=== PATIENT | male | born 1940 | race Hispanic/Latino ===

== ENCOUNTER → 2018-03-28 | Outpatient (CLI) | payer OTHER ==
[~2018-03-28] MED LIST: LIDOCAINE/PRILOCAINE CREAM 5GM TUBE TP ONE
[2018-03-28 11:45] VITALS: BP 156/75
== END | disposition home or self-care (01) ==
LOC: WHH 08:50
PROVIDERS: ATTEND Surgery
DX: I83.018 Varicose veins of right lower extremity with ulcer other part of lower leg (principal); E11.622 Type 2 diabetes mellitus with other skin ulcer; L97.811 Non-pressure chronic ulcer of other part of right lower leg limited to breakdown of skin; E11.51 Type 2 diabetes mellitus with diabetic peripheral angiopathy without gangrene; I10 Essential (primary) hypertension; J44.9 Chronic obstructive pulmonary disease, unspecified; E11.36 Type 2 diabetes mellitus with diabetic cataract; Z87.891 Personal history of nicotine dependence; Z95.1 Presence of aortocoronary bypass graft
CPT/HCPCS: 82948; A4450; G0463; J3490

== ENCOUNTER → 2018-04-04 | Outpatient (CLI) | payer OTHER ==
[2018-04-04 11:16] VITALS: BP 178/79
== END | disposition home or self-care (01) ==
LOC: WHH 09:00
PROVIDERS: ATTEND Surgery
DX: I83.018 Varicose veins of right lower extremity with ulcer other part of lower leg (principal); E11.622 Type 2 diabetes mellitus with other skin ulcer; L97.811 Non-pressure chronic ulcer of other part of right lower leg limited to breakdown of skin; J44.9 Chronic obstructive pulmonary disease, unspecified; I10 Essential (primary) hypertension; E11.36 Type 2 diabetes mellitus with diabetic cataract; E11.51 Type 2 diabetes mellitus with diabetic peripheral angiopathy without gangrene; Z95.1 Presence of aortocoronary bypass graft; Z87.891 Personal history of nicotine dependence
CPT/HCPCS: 11042; 82948; J3490

== ENCOUNTER → 2018-04-09 | Outpatient (CLI) | payer OTHER | END | disposition home or self-care (01) | LOC: SHCH 14:04 | PROVIDERS: ATTEND Internal Medicine Cardiovascular Disease | DX: I87.2 Venous insufficiency (chronic) (peripheral) (principal); I73.9 Peripheral vascular disease, unspecified | CPT/HCPCS: 93925; 93970 ==

== ENCOUNTER → 2018-04-10 | Outpatient (CLI) | payer OTHER | END | disposition home or self-care (01) | LOC: WHH 14:30 | PROVIDERS: ATTEND Surgery | DX: I83.018 Varicose veins of right lower extremity with ulcer other part of lower leg (principal); E11.622 Type 2 diabetes mellitus with other skin ulcer; L97.811 Non-pressure chronic ulcer of other part of right lower leg limited to breakdown of skin; J44.9 Chronic obstructive pulmonary disease, unspecified; I10 Essential (primary) hypertension; E11.36 Type 2 diabetes mellitus with diabetic cataract; E11.51 Type 2 diabetes mellitus with diabetic peripheral angiopathy without gangrene; Z95.1 Presence of aortocoronary bypass graft; Z87.891 Personal history of nicotine dependence | CPT/HCPCS: 82948; 93922 ==

== ENCOUNTER → 2018-04-11 | Outpatient (CLI) | payer OTHER ==
[2018-04-11 11:08] VITALS: BP 176/80
== END | disposition home or self-care (01) ==
LOC: WHH 09:10
PROVIDERS: ATTEND Surgery
DX: I83.018 Varicose veins of right lower extremity with ulcer other part of lower leg (principal); E11.622 Type 2 diabetes mellitus with other skin ulcer; L97.811 Non-pressure chronic ulcer of other part of right lower leg limited to breakdown of skin; J44.9 Chronic obstructive pulmonary disease, unspecified; I10 Essential (primary) hypertension; E11.36 Type 2 diabetes mellitus with diabetic cataract; E11.51 Type 2 diabetes mellitus with diabetic peripheral angiopathy without gangrene; Z95.1 Presence of aortocoronary bypass graft; Z87.891 Personal history of nicotine dependence
CPT/HCPCS: A6021; G0463

== ENCOUNTER → 2018-04-15 | Outpatient (CLI) | payer OTHER | END | disposition home or self-care (01) | LOC: EDUNIT# 08:30 → SHCH 08:49 | PROVIDERS: ATTEND Internal Medicine Cardiovascular Disease | DX: I25.10 Atherosclerotic heart disease of native coronary artery without angina pectoris (principal); R07.9 Chest pain, unspecified; Z95.1 Presence of aortocoronary bypass graft | CPT/HCPCS: 93306 ==

== ENCOUNTER → 2018-04-25 | Outpatient (CLI) | payer OTHER ==
[2018-04-25 11:48] VITALS: BP 182/89
== END | disposition home or self-care (01) ==
LOC: WHH 09:00
PROVIDERS: ATTEND Surgery
DX: I83.018 Varicose veins of right lower extremity with ulcer other part of lower leg (principal); E11.622 Type 2 diabetes mellitus with other skin ulcer; L97.811 Non-pressure chronic ulcer of other part of right lower leg limited to breakdown of skin; I25.10 Atherosclerotic heart disease of native coronary artery without angina pectoris; J44.9 Chronic obstructive pulmonary disease, unspecified; I10 Essential (primary) hypertension; E11.36 Type 2 diabetes mellitus with diabetic cataract; E11.51 Type 2 diabetes mellitus with diabetic peripheral angiopathy without gangrene; I87.2 Venous insufficiency (chronic) (peripheral); Z95.1 Presence of aortocoronary bypass graft; Z87.891 Personal history of nicotine dependence
CPT/HCPCS: 82948; A6021; G0463; J3490

== ENCOUNTER → 2018-07-04 | Outpatient (CLI) | payer OTHER ==
[~2018-07-04] MED LIST changes: +ASPI-1197 PO; +ATOR10TA69 PO; +CLOP75TA32 PO; +EMPA10TA PO; +GLIP10TA9 PO; -LIDOCAINE/PRILOCAINE CREAM 5GM TUBE TP ONE; +losartan PO; +metformin PO; +metoprol PO
[2018-07-04 11:10] VITALS: BP 162/85
== END | disposition home or self-care (01) ==
LOC: WHH 09:00
PROVIDERS: ATTEND Surgery
DX: I83.018 Varicose veins of right lower extremity with ulcer other part of lower leg (principal); E11.622 Type 2 diabetes mellitus with other skin ulcer; L97.811 Non-pressure chronic ulcer of other part of right lower leg limited to breakdown of skin; I25.10 Atherosclerotic heart disease of native coronary artery without angina pectoris; J44.9 Chronic obstructive pulmonary disease, unspecified; E78.5 Hyperlipidemia, unspecified; I11.9 Hypertensive heart disease without heart failure; E11.51 Type 2 diabetes mellitus with diabetic peripheral angiopathy without gangrene; E11.36 Type 2 diabetes mellitus with diabetic cataract; Z87.891 Personal history of nicotine dependence; Z95.1 Presence of aortocoronary bypass graft
CPT/HCPCS: A6196; G0463

== ENCOUNTER → 2018-07-11 | Outpatient (CLI) | payer OTHER ==
[2018-07-11 13:56] VITALS: BP 174/85
== END | disposition home or self-care (01) ==
LOC: WHH 09:20
PROVIDERS: ATTEND Surgery
DX: I83.018 Varicose veins of right lower extremity with ulcer other part of lower leg (principal); E11.622 Type 2 diabetes mellitus with other skin ulcer; L97.811 Non-pressure chronic ulcer of other part of right lower leg limited to breakdown of skin; I25.10 Atherosclerotic heart disease of native coronary artery without angina pectoris; J44.9 Chronic obstructive pulmonary disease, unspecified; E78.5 Hyperlipidemia, unspecified; I11.9 Hypertensive heart disease without heart failure; E11.51 Type 2 diabetes mellitus with diabetic peripheral angiopathy without gangrene; E11.36 Type 2 diabetes mellitus with diabetic cataract; Z87.891 Personal history of nicotine dependence; Z95.1 Presence of aortocoronary bypass graft
CPT/HCPCS: A6022; G0463

== ENCOUNTER → 2018-07-18 | Outpatient (CLI) | payer OTHER ==
[~2018-07-18] MED LIST changes: +LIDOCAINE/PRILOCAINE CREAM 5GM TUBE TP ONE
[2018-07-18 13:25] VITALS: BP 180/82
== END | disposition home or self-care (01) ==
LOC: WHH 09:20
PROVIDERS: ATTEND Surgery
DX: I70.238 Atherosclerosis of native arteries of right leg with ulceration of other part of lower leg (principal); E11.622 Type 2 diabetes mellitus with other skin ulcer; L97.811 Non-pressure chronic ulcer of other part of right lower leg limited to breakdown of skin; I25.10 Atherosclerotic heart disease of native coronary artery without angina pectoris; J44.9 Chronic obstructive pulmonary disease, unspecified; E78.5 Hyperlipidemia, unspecified; I11.9 Hypertensive heart disease without heart failure; E11.51 Type 2 diabetes mellitus with diabetic peripheral angiopathy without gangrene; E11.36 Type 2 diabetes mellitus with diabetic cataract; Z87.891 Personal history of nicotine dependence; Z95.1 Presence of aortocoronary bypass graft
CPT/HCPCS: A6022; G0463; J3490

== ENCOUNTER → 2018-07-25 | Outpatient (CLI) | payer OTHER ==
[~2018-07-25] MED LIST changes: -LIDOCAINE/PRILOCAINE CREAM 5GM TUBE TP ONE
[2018-07-25 09:53] VITALS: BP 172/75
== END | disposition home or self-care (01) ==
LOC: WHH 09:15
PROVIDERS: ATTEND Surgery
DX: I83.018 Varicose veins of right lower extremity with ulcer other part of lower leg (principal); L97.811 Non-pressure chronic ulcer of other part of right lower leg limited to breakdown of skin; I73.9 Peripheral vascular disease, unspecified; I25.10 Atherosclerotic heart disease of native coronary artery without angina pectoris; J44.9 Chronic obstructive pulmonary disease, unspecified; E78.5 Hyperlipidemia, unspecified; I11.9 Hypertensive heart disease without heart failure; E11.51 Type 2 diabetes mellitus with diabetic peripheral angiopathy without gangrene; E11.36 Type 2 diabetes mellitus with diabetic cataract; Z87.891 Personal history of nicotine dependence; Z95.1 Presence of aortocoronary bypass graft
CPT/HCPCS: A6021; G0463

== ENCOUNTER 2018-08-01 09:30 | Outpatient (CLI) | payer OTHER ==
[2018-08-01 13:18] VITALS: BP 186/99
== END 2018-08-01 14:54 | disposition home or self-care (01) ==
LOC: WHH 09:30
PROVIDERS: ATTEND Surgery
DX: I83.018 Varicose veins of right lower extremity with ulcer other part of lower leg (principal); E11.622 Type 2 diabetes mellitus with other skin ulcer; L97.811 Non-pressure chronic ulcer of other part of right lower leg limited to breakdown of skin; I25.10 Atherosclerotic heart disease of native coronary artery without angina pectoris; J44.9 Chronic obstructive pulmonary disease, unspecified; E78.5 Hyperlipidemia, unspecified; I11.9 Hypertensive heart disease without heart failure; E11.51 Type 2 diabetes mellitus with diabetic peripheral angiopathy without gangrene; E11.36 Type 2 diabetes mellitus with diabetic cataract; Z87.891 Personal history of nicotine dependence; Z95.1 Presence of aortocoronary bypass graft
CPT/HCPCS: G0463

== ENCOUNTER → 2019-10-28 | Outpatient (CLI) | payer OTHER | END | disposition home or self-care (01) | LOC: RAH 09:47 | PROVIDERS: ATTEND Family Medicine | DX: I34.0 Nonrheumatic mitral (valve) insufficiency (principal); I31.3 Pericardial effusion (noninflammatory) | CPT/HCPCS: 93306 ==

== ENCOUNTER → 2021-06-22 | Outpatient (CLI) | payer OTHER | END | disposition home or self-care (01) | LOC: SHCH 11:05 | PROVIDERS: ATTEND Internal Medicine Cardiovascular Disease | DX: I70.292 Other atherosclerosis of native arteries of extremities, left leg (principal) | CPT/HCPCS: 93925 ==

== ENCOUNTER 2022-11-28 10:38 | Observation (INO) | payer MEDICARE ==
[~2022-11-28] VITALS: Ht 165.1 cm; Wt 79.7 kg
[~2022-11-28 10:38] MED LIST changes: -ATOR10TA69 PO; +ATOR40TA69 PO; -EMPA10TA PO; +EMPA25TA PO; +FLUT1BLS3 IH; +FURO40TA7 PO; +LOSA25TA41 PO; +METF-446 PO; +METO-391 PO; +PANT40TA54 PO; +SPIR50TA PO; -losartan PO; -metformin PO; -metoprol PO
[2022-11-28 11:13] LABS: BASOPHILS % (AUTO) 0.8 % (0.0-5.0); EOSINOPHILS % (AUTO) 0.8 % (0.0-8.0); MEAN CORPUSCULAR HEMOGLOBIN 28.1 pg (27.0-33.0); MEAN CORPUSCULAR HGB CONC 30.4 g/dL (32.0-36.0); MEAN CORPUSCULAR VOLUME 92.2 fL (79-99); NEUTROPHILS % (AUTO) 73.9 % (40.0-77.0); PLATELET COUNT (AUTO) 225 K/uL (130-400); RED BLOOD CELL COUNT(AUTO) 4.99 MIL/uL (4.50-6.20); RED CELL DISTRIBUTION WIDTH 17.3 % (11.0-15.5); WHITE BLOOD COUNT (AUTO) 7.5 K/uL (4.8-10.8)
[2022-11-28 11:15] LABS: APPEARANCE,URINE CLEAR (CLEAR); BILIRUBIN,URINE NEGATIVE (NEGATIVE); COLOR,URINE LIGHT-YELLOW (YELLOW); GLUCOSE, URINE (UA) NEGATIVE (NEGATIVE); KETONES,URINE NEGATIVE (NEGATIVE); LEUKOCYTE ESTERASE ,URINE NEGATIVE Leu/uL (NEGATIVE); NITRATE,URINE NEGATIVE (NEGATIVE); OCCULT BLOOD,URINE NEGATIVE (NEGATIVE); PROTEIN,URINE NEGATIVE (NEGATIVE); UROBILINOGEN,URINE 0.2 mg/dL (0.2-1.0)
[2022-11-28 11:25] LABS: CREATININE 1.3 mg/dL (0.5-1.5); POTASSIUM 4.2 mmol/L (3.5-5.1)
[2022-11-28 11:30] LABS: ALBUMIN 3.7 g/dL (3.5-5.0); TOTAL PROTEIN, SERUM 7.9 g/dL (6.0-8.3)
[2022-11-28] MEDS ORDERED: SOLU-MEDROL 125MG VIAL IVP ONE (12:00)
[2022-11-28] MEDS ORDERED: IPRATROPIUM/ALBUTEROL SULFATE 3 ML SOLUTION IH ONE (12:00)
[2022-11-28] MEDS ORDERED: ALBUTEROL 0.083% 2.5 MG/3 ML INH IH STA (12:29)
[2022-11-28] MEDS ORDERED: POTASSIUM CHLORIDE 20MEQ/100ML 100 ML IV PRN (15:30)
[2022-11-28] MEDS ORDERED: KCL 20 MEQ ERTAB PO PRN (15:30)
[2022-11-28] MEDS ORDERED: LIDOCAINE HCL-MPF 1% 2ML VIAL IJ PRN (15:30)
[2022-11-28] MEDS ORDERED: ENOXAPARIN SODIUM 80 MG/0.8 ML SQ SCH (15:30)
[2022-11-28] MEDS ORDERED: POTASSIUM CHLORIDE 10% ELIXIR 20 MEQ/15 ML UDCUP PO PRN (15:30)
[2022-11-28] MEDS: KCL 20 MEQ ERTAB PO SCH ×2 (16:24→22:47)
[2022-11-28] MEDS: FUROSEMIDE 40MG VIAL IV SCH (16:25)
[2022-11-29] MEDS: FUROSEMIDE 40MG VIAL IV SCH ×2 (04:56→15:41)
[2022-11-29] MEDS ORDERED: ISOS30TA92 PO (06:12)
[2022-11-29] MEDS ORDERED: TAMS-1 PO (06:12)
[2022-11-29 07:52] LABS: HEMATOCRIT 44.8 % (42-54); MEAN CORPUSCULAR HEMOGLOBIN 28.3 pg (27.0-33.0); MEAN CORPUSCULAR HGB CONC 31.3 g/dL (32.0-36.0); MEAN CORPUSCULAR VOLUME 90.7 fL (79-99); RED BLOOD CELL COUNT(AUTO) 4.94 MIL/uL (4.50-6.20); RED CELL DISTRIBUTION WIDTH 17.2 % (11.0-15.5); WHITE BLOOD COUNT (AUTO) 7.3 K/uL (4.8-10.8)
[2022-11-29 08:00] VITALS: BP 160/79
[2022-11-29 08:08] LABS: ALBUMIN 3.4 g/dL (3.5-5.0); CREATININE 1.3 mg/dL (0.5-1.5); POTASSIUM 4.4 mmol/L (3.5-5.1); TOTAL PROTEIN, SERUM 7.9 g/dL (6.0-8.3)
[2022-11-29] MEDS: KCL 20 MEQ ERTAB PO SCH ×2 (09:00→20:34)
[2022-11-29] MEDS ORDERED: ENOXAPARIN SODIUM 80 MG/0.8 ML SQ SCH (09:00)
[2022-11-29] MEDS: ENOXAPARIN SODIUM 40 MG/0.4 ML SYRINGE SQ SCH (09:00)
[2022-11-29] MEDS: LOSARTAN 25 MG TABLET PO SCH (10:52)
[2022-11-29] MEDS: ISOSORBIDE MONO 30MG SR TAB PO SCH (10:52)
[2022-11-29] MEDS: CLOPIDOGREL 75MG TAB PO SCH (10:54)
[2022-11-29] MEDS: ASPIRIN 81MG CHEW TAB PO SCH (10:55)
[2022-11-29] MEDS: SPIRONOLACTONE 25 MG TAB PO SCH ×2 (10:55→20:34)
[2022-11-29] MEDS: INSULIN HUMULIN R 100 UNIT/ML 3ML SQ SCH ×4 (10:59→20:38)
[2022-11-29 12:00] VITALS: BP 119/70
[2022-11-29 16:00] VITALS: BP 119/71
[2022-11-29 20:00] VITALS: BP 115/64
[2022-11-29] MEDS ORDERED: METOPROLOL SUCCINATE 50 MG TAB.SR.24H PO SCH (21:00)
[2022-11-30] VITALS: BP 101/54
[2022-11-30] MEDS: FUROSEMIDE 40MG VIAL IV SCH (03:39)
[2022-11-30 04:00] VITALS: BP 104/54
[2022-11-30] MEDS: INSULIN HUMULIN R 100 UNIT/ML 3ML SQ SCH (07:30)
[2022-11-30 08:00] VITALS: BP 111/67
[2022-11-30] MEDS: ASPIRIN 81MG CHEW TAB PO SCH (08:30)
[2022-11-30] MEDS: LOSARTAN 25 MG TABLET PO SCH (08:30)
[2022-11-30] MEDS: SPIRONOLACTONE 25 MG TAB PO SCH (08:31)
[2022-11-30] MEDS: KCL 20 MEQ ERTAB PO SCH (08:31)
[2022-11-30] MEDS: CLOPIDOGREL 75MG TAB PO SCH (08:31)
[2022-11-30] MEDS: ISOSORBIDE MONO 30MG SR TAB PO SCH (08:31)
[2022-11-30] MEDS: ENOXAPARIN SODIUM 40 MG/0.4 ML SYRINGE SQ SCH (08:37)
== END 2022-11-30 11:30 | disposition home or self-care (01) ==
LOC: EDH 10:38 → EDHIP 13:45 → INTOOBSV 13:45 → 3DH 11-29 05:25
PROVIDERS: ADMIT Internal Medicine; ATTEND Internal Medicine
DX: I11.0 Hypertensive heart disease with heart failure (principal); Z20.822 Contact with and (suspected) exposure to COVID-19; I50.23 Acute on chronic systolic (congestive) heart failure; I25.10 Atherosclerotic heart disease of native coronary artery without angina pectoris; E78.5 Hyperlipidemia, unspecified; E11.9 Type 2 diabetes mellitus without complications; E78.00 Pure hypercholesterolemia, unspecified; J45.909 Unspecified asthma, uncomplicated; I73.9 Peripheral vascular disease, unspecified; Z95.1 Presence of aortocoronary bypass graft; Z95.5 Presence of coronary angioplasty implant and graft; Z91.119 Patient's noncompliance with dietary regimen due to unspecified reason; Z95.810 Presence of automatic (implantable) cardiac defibrillator; Z79.899 Other long term (current) drug therapy
CPT/HCPCS: 94640 ×2; 96374; 96372 ×3; 96375; 82550 ×3; 83874 ×3; 84484 ×4; 80053 ×2; 83880; 85025; 81003; 36415 ×2; 87635; 71045 ×2; 99291; 93005 ×2; 96376 ×2; 85027; 82948 ×4; G0378 ×45; C9803; J2930; J1650 ×3; J1940 ×4

== ENCOUNTER 2022-12-11 10:25 | Inpatient (IN) | payer MEDICARE ==
[~2022-12-11] VITALS: Ht 167.6 cm; Wt 74.8 kg
[~2022-12-11 10:25] MED LIST changes: +ISOS30TA92 PO; +TAMS-1 PO
[2022-12-11 11:07] LABS: CREATININE 1.1 mg/dL (0.5-1.5); POTASSIUM 4.4 mmol/L (3.5-5.1)
[2022-12-11 11:12] LABS: ALBUMIN 3.4 g/dL (3.5-5.0); TOTAL PROTEIN, SERUM 7.2 g/dL (6.0-8.3)
[2022-12-11 11:22] LABS: APPEARANCE,URINE CLEAR (CLEAR); BILIRUBIN,URINE NEGATIVE (NEGATIVE); COLOR,URINE YELLOW (YELLOW); GLUCOSE, URINE (UA) 200 mg/dL (NEGATIVE); KETONES,URINE 5 mg/dL (NEGATIVE); LEUKOCYTE ESTERASE ,URINE NEGATIVE Leu/uL (NEGATIVE); NITRATE,URINE NEGATIVE (NEGATIVE); OCCULT BLOOD,URINE NEGATIVE (NEGATIVE); PH,URINE 5.5 (5.0-8.0); PROTEIN,URINE 50 mg/dL (NEGATIVE)
[2022-12-11 11:27] LABS: BASOPHILS % (AUTO) 0.6 % (0.0-5.0); EOSINOPHILS % (AUTO) 1.1 % (0.0-8.0); HEMATOCRIT 44.6 % (42-54); LYMPHOCYTES % (AUTO) 11.5 % (21.0-51.0); MEAN CORPUSCULAR HEMOGLOBIN 28.5 pg (27.0-33.0); MEAN CORPUSCULAR HGB CONC 30.3 g/dL (32.0-36.0); MEAN CORPUSCULAR VOLUME 94.3 fL (79-99); MONOCYTES % (AUTO) 7.4 % (3.0-13.0); NEUTROPHILS % (AUTO) 77.7 % (40.0-77.0); PLATELET COUNT (AUTO) 195 K/uL (130-400); RED BLOOD CELL COUNT(AUTO) 4.73 MIL/uL (4.50-6.20); RED CELL DISTRIBUTION WIDTH 17.8 % (11.0-15.5); WHITE BLOOD COUNT (AUTO) 7.1 K/uL (4.8-10.8)
[2022-12-11 11:32] LABS: BACTERIA,URINE RARE /HPF (None Seen); MUCUS,URINE RARE LPF (None Seen); SQUAMOUS EPITHELIAL CELL,UR RARE /HPF (0-2)
[2022-12-11] MEDS ORDERED: FUROSEMIDE 40MG VIAL IV ONE (15:00)
[2022-12-11] MEDS: FUROSEMIDE 40MG VIAL IV SCH (16:00)
[2022-12-11] MEDS: INSULIN HUMULIN R 100 UNIT/ML 3ML SQ SCH ×2 (16:24→20:21)
[2022-12-11] MEDS: SPIRONOLACTONE 25 MG TAB PO SCH (20:20)
[2022-12-11] MEDS: KCL 20 MEQ ERTAB PO SCH (20:20)
[2022-12-11] MEDS ORDERED: MAGNESIUM OXIDE 400 MG TABLET PO SCH (20:30)
[2022-12-12 01:00] VITALS: BP 128/65
[2022-12-12] MEDS: FUROSEMIDE 40MG VIAL IV SCH ×3 (01:36→16:30)
[2022-12-12 03:50] VITALS: BP 127/82
[2022-12-12] MEDS: INSULIN HUMULIN R 100 UNIT/ML 3ML SQ SCH ×4 (05:35→20:07)
[2022-12-12 08:00] VITALS: BP 137/71
[2022-12-12 09:01] LABS: CREATININE 1.2 mg/dL (0.5-1.5); POTASSIUM 4.2 mmol/L (3.5-5.1)
[2022-12-12] MEDS: SPIRONOLACTONE 25 MG TAB PO SCH ×2 (09:04→20:08)
[2022-12-12] MEDS: CLOPIDOGREL 75MG TAB PO SCH (09:04)
[2022-12-12] MEDS: ISOSORBIDE MONO 30MG SR TAB PO SCH (09:04)
[2022-12-12] MEDS: LOSARTAN 25 MG TABLET PO SCH (09:04)
[2022-12-12] MEDS: ASPIRIN 81MG CHEW TAB PO SCH (09:05)
[2022-12-12] MEDS: KCL 20 MEQ ERTAB PO SCH ×2 (09:05→20:08)
[2022-12-12 11:35] VITALS: BP 134/70
[2022-12-12 15:30] VITALS: BP 138/70
[2022-12-12 20:00] VITALS: BP 121/63
[2022-12-12] MEDS ORDERED: ATORVASTATIN 40 MG TABLET PO SCH (21:00)
[2022-12-12] MEDS ORDERED: METOPROLOL SUCCINATE 50 MG TAB.SR.24H PO SCH (21:00)
[2022-12-13] VITALS: BP 101/58
[2022-12-13] MEDS: FUROSEMIDE 40MG VIAL IV SCH ×2 (00:47→08:30)
[2022-12-13 04:00] VITALS: BP 127/60
[2022-12-13] MEDS: INSULIN HUMULIN R 100 UNIT/ML 3ML SQ SCH (06:56)
[2022-12-13 08:00] VITALS: BP 117/65
[2022-12-13] MEDS: ISOSORBIDE MONO 30MG SR TAB PO SCH (08:30)
[2022-12-13] MEDS: LOSARTAN 25 MG TABLET PO SCH (08:30)
[2022-12-13] MEDS: CLOPIDOGREL 75MG TAB PO SCH (08:30)
[2022-12-13] MEDS: SPIRONOLACTONE 25 MG TAB PO SCH (08:31)
[2022-12-13] MEDS: ASPIRIN 81MG CHEW TAB PO SCH (08:31)
[2022-12-13] MEDS: KCL 20 MEQ ERTAB PO SCH (08:33)
[2022-12-13] MEDS ORDERED: SACUBITRIL/VALSARTAN 1 EACH TABLET PO SCH (09:00)
[2022-12-13] MEDS ORDERED: FUROSEMIDE 40 MG TABLET PO SCH ×2 (09:00→17:00)
[2022-12-13 12:00] VITALS: BP 126/72
== END 2022-12-13 16:14 | disposition home or self-care (01) | DRG 291 ==
LOC: EDH 10:25 → EDHIP 14:15 → 4BH 12-12 00:43
PROVIDERS: ADMIT Internal Medicine; ATTEND Internal Medicine
DX: I11.0 Hypertensive heart disease with heart failure (principal); I50.43 Acute on chronic combined systolic (congestive) and diastolic (congestive) heart failure; I25.5 Ischemic cardiomyopathy; I25.10 Atherosclerotic heart disease of native coronary artery without angina pectoris; E11.51 Type 2 diabetes mellitus with diabetic peripheral angiopathy without gangrene; I70.209 Unspecified atherosclerosis of native arteries of extremities, unspecified extremity; I87.2 Venous insufficiency (chronic) (peripheral); E78.00 Pure hypercholesterolemia, unspecified; Z95.1 Presence of aortocoronary bypass graft; Z79.02 Long term (current) use of antithrombotics/antiplatelets; Z79.82 Long term (current) use of aspirin; Z95.5 Presence of coronary angioplasty implant and graft; Z95.810 Presence of automatic (implantable) cardiac defibrillator
CPT/HCPCS: 36415; 71045; 80048; 80053; 81001; 82550; 82948; 83874; 83880; 84484; 85025; 87635; 87804; 93005; C9803; G0378; J1815; J1940

== ENCOUNTER → 2023-07-16 | Outpatient (CLI) | payer OTHER ==
[~2023-07-16] MED LIST changes: -FURO40TA7 PO; -LOSA25TA41 PO
== END | disposition home or self-care (01) ==
LOC: SHCH 13:01
PROVIDERS: ATTEND Internal Medicine Cardiovascular Disease
DX: I87.2 Venous insufficiency (chronic) (peripheral) (principal); I70.202 Unspecified atherosclerosis of native arteries of extremities, left leg
CPT/HCPCS: 93925; 93970

== ENCOUNTER → 2023-07-23 | Outpatient (CLI) | payer OTHER ==
[~2023-07-23] MED LIST changes: +REGADENOSON 0.4 MG/5 ML PF SYG IVP ONE
== END | disposition home or self-care (01) ==
LOC: SHCH 08:20
PROVIDERS: ATTEND Internal Medicine Cardiovascular Disease
DX: I20.9 Angina pectoris, unspecified (principal); R94.39 Abnormal result of other cardiovascular function study; I51.7 Cardiomegaly; I25.9 Chronic ischemic heart disease, unspecified; Z95.0 Presence of cardiac pacemaker
CPT/HCPCS: 78452; 93017; J2785; A9500 ×2; 96374

== ENCOUNTER → 2024-10-08 | Outpatient (CLI) | payer OTHER ==
[~2024-10-08] MED LIST changes: +GLIP10TA16 PO; -GLIP10TA9 PO; -REGADENOSON 0.4 MG/5 ML PF SYG IVP ONE
== END | disposition home or self-care (01) ==
LOC: SHCH 12:19
PROVIDERS: ATTEND Internal Medicine Cardiovascular Disease
DX: R06.02 Shortness of breath (principal); R07.9 Chest pain, unspecified
CPT/HCPCS: 93306

== ENCOUNTER → 2025-02-11 | Outpatient (CLI) | payer OTHER ==
[~2025-02-11] MED LIST changes: -ASPI-1197 PO; -ATOR40TA69 PO; -CLOP75TA32 PO; -FLUT1BLS3 IH; -ISOS30TA92 PO; +LOSA25TA41 PO; -PANT40TA54 PO; +PIOG30TA70 PO; +RIVA20TA PO; -SPIR50TA PO; -TAMS-1 PO; +TAMS-55 PO; +TORS20TA4 PO
[2025-02-11 12:56] LABS: ALBUMIN 3.7 g/dL (3.5-5.0); CREATININE 1.3 mg/dL (0.5-1.3); POTASSIUM 3.7 mmol/L (3.5-5.1); TOTAL PROTEIN, SERUM 8.1 g/dL (6.0-8.3)
== END | disposition home or self-care (01) ==
LOC: LAB 09:49
PROVIDERS: ATTEND Physician Assistant
DX: I25.5 Ischemic cardiomyopathy (principal)
CPT/HCPCS: 36415; 80053; 83880

== ENCOUNTER 2025-04-12 15:29 | Inpatient (IN) | payer OTHER ==
[~2025-04-12] VITALS: Ht 165.1 cm; Wt 83.7 kg
--- NOTE | 2025-04-12 15:39 | ERN ---
General Chief Complaint: Dyspnea/Respdistress Stated Complaint: SOB WITH EXERTION Time Seen by MD: 15:32 Source: patient History of Present Illness Initial Comments PATIENT IS A AN 84-YEAR-OLD MALE COMING IN TO BE EVALUATED FOR SHORTNESS OF BREATH. PATIENT DOES HAS A HISTORY OF CHF AND STATES HE TAKES HIS MEDICATION 3 TIMES A DAY. HE ALSO STATES THAT THREE DAYS AGO HE STARTED NOTICING AN INCREASING WEIGHT. Allergies: Coded Allergies: No Known Drug Allergies (Unverified Allergy, Unknown, 05/17/18) Home Meds Active Scripts Torsemide (Torsemide) 20 Mg Tablet, 20 MG PO AD, #90 TAB take 2 tabs in AM take 1 tab PM Prov:ROSE CHINO 01/18/25 Reported Medications Pioglitazone HCl (Pioglitazone HCl) 30 Mg Tablet, 30 MG PO DAILY, TAB 01/16/25 Empagliflozin (Jardiance) 25 Mg Tablet, 25 MG PO DAILY, TAB 01/16/25 Rivaroxaban (Xarelto) 20 Mg Tablet, 2.5 MG PO DAILY, TAB 01/16/25 Tamsulosin HCl (Flomax) 0.4 Mg Cap.er.24h, 0.4 MG PO DAILY, CAPSULE.DR 01/16/25 Metoprolol Succinate (Metoprolol Succinate) 50 Mg Tab.er.24h, 50 MG PO DAILY, TAB 01/16/25 Glipizide (Glipizide) 10 Mg Tablet, 10 MG PO DAILY, TAB 01/16/25 Metformin HCl (Metformin HCl) 1,000 Mg Tablet, 1000 MG PO BID, TAB 01/16/25 Losartan Potassium (Losartan Potassium) 25 Mg Tablet, 25 MG PO DAILY, TAB 01/16/25 Past Medical History Past Medical History: CHF, Diabetes-Type II, High Cholesterol, Heart Disease, Hypertension Past Surgical History: CABG, Pacer/AICD Surgical History Other: CATARACTS, CARDIAC STENTS Social History Social History: Negative ROS Dictation CONSTITUTIONAL: NO CHILLS, NO FEVER, NO WEAKNESS, NO DIAPHORESIS, NO MALAISE. HEAD/FACE: NO SIGNS OF TRAUMA. EENT: NO EYE PAIN, NO BLURRED VISION, NO TEARING, NO DOUBLE VISION, NO EAR PAIN, NO EAR DISCHARGE, NO NOSE PAIN, NO NASAL CONGESTION, NO THROAT PAIN, NO THROAT SWELLING, NO MOUTH PAIN. RESPIRATORY: NO COUGH, NO ORTHOPNEA, SOB, NO STRIDOR, NO WHEEZING. CARDIOVASCULAR: NO CHEST PAIN, NO EDEMA, NO PALPITATIONS, NO SYNCOPE. GASTROINTESTINAL/ABDOMINAL: NO ABDOMINAL PAIN, NO CONSTIPATION, NO DIARRHEA, NO NAUSEA, NO VOMITING. GENITOURINARY: NO ABNORMAL DISCHARGE, NO DYSURIA, NO FREQUENT URINATION, NO HEMATURIA. NO COMPLAINTS OF PAIN IN THE GENITALS. MUSCULOSKELETAL: NO BACK PAIN, NO GOUT, NO JOINT PAIN, NO JOINT SWELLING, NO MUSCLE PAIN, NO MUSCLE STIFFNESS, NO NECK PAIN. INTEGUMENTARY: NO CHANGE IN COLOR, NO CHANGE IN HAIR/NAILS, NO DRYNESS, NO LESION, NO LUMPS, NO RASH. NEUROLOGICAL/PSYCH: NO ANXIETY, NOT DEPRESSED, NO EMOTIONAL PROBLEM, NO HEADACHE, NO NUMBNESS, NO PRE-EXISTING DEFICIT, NO HISTORY OF SEIZURES, NO TREMORS, NO WEAKNESS. HEMATOLOGIC/LYMPHATIC: NOT ANEMIC, NO HISTORY OF BLOOD CLOTS, NO APPARENT BLEEDING, NO BRUISING, GLANDS NOT SWOLLEN. ALL SYSTEMS NEGATIVE, EXCEPT NOTED. Physical Exam Physical Exam Dictation VITAL SIGNS: REVIEWED. GENERAL APPEARANCE: ALERT, ORIENTED X3, NO ACUTE DISTRESS, OBESE. HEAD AND FACE: NON-TRAUMATIC. EYES: PERRL, PINK CONJUNCTIVAS, EYELID NO TRAUMA, ANTERIOR CHAMBER CLEAR. EARS: PINNAS INTACT AND NO SIGNS OF TRAUMA OR ERYTHEMA. EAR CANALS CLEAR AND NO DISCHARGE. TMS NO ERYTHEMA. NOSE: NO DISCHARGE, NO BLEEDING. OROPHARYNX: MOUTH NORMAL, TEETH NO CARIES, TONGUE PINK. PHARYNX CLEAR, NO ERYTHEMA. TONSILS NO EXUDATES, NO ABSCESSES NOTED. MUCOUS MEMBRANE MOIST. NECK: SUPPLE, NON-TENDER, NO THYROMEGALY, NO MASSES, NO JVD, NO BRUITS. BREAST: DEFERRED. CHEST: NO TENDERNESS, NO CREPITUS, NO PARADOXICAL MOVEMENT, NO RETRACTIONS. LUNGS: CLEAR, WELL-VENTILATED, SYMMETRIC, NO RALES, NO WHEEZING, NO RHONCHI, NO STRIDOR, GOOD BREATH SOUNDS BILATERALLY. HEART: REGULAR RATE, REGULAR RHYTHM, NO MURMUR, NO GALLOPS. VASCULAR: NO PERIPHERAL EDEMA. ABDOMEN: SOFT, POSITIVE BOWEL SOUNDS, NONDISTENDED, NO GUARDING, NONTENDER, NO REBOUND, NO MASSES NO HEPATOMEGALY, NO SPLENOMEGALY, NO MARTINEZ'S SIGN, NO HERNIAS. RECTAL: DEFERRED. GENITAL: DEFERRED. NEUROLOGICAL: NORMAL SPEECH, GROSS MOTOR FUNCTION INTACT, GROSS SENSORY FUNCTION INTACT. MUSCULOSKELETAL: NECK NONTENDER, FULL RANGE OF MOTION, BACK NONTENDER, FULL RANGE OF MOTION. EXTREMITIES: NONTENDER, FULL RANGE OF MOTION. SKIN: COLOR PINK, DRY, NO TURGOR, NO RASH, NO LACERATIONS, NO ABRASIONS, NO CONTUSIONS. LYMPHATICS: DEFERRED. Results Laboratory and Microbiology Lab and Micro Result Laboratory Tests Test 04/12/25 16:01 White Blood Count 4.9 K/uL (4.8-10.8) Red Blood Count 4.66 MIL/uL (4.50-6.20) Hemoglobin 12.9 g/dL (14.0-18.0) L Hematocrit 42.9 % (42-54) Mean Corpuscular Volume 92.1 fL (79-99) Mean Corpuscular Hemoglobin 27.7 pg (27.0-33.0) Mean Corpuscular Hemoglobin Concent 30.1 g/dL (32.0-36.0) L Red Cell Distribution Width 18.8 % (11.0-15.5) H Platelet Count 170 K/uL (130-400) Mean Platelet Volume 10.8 fL (7.5-10.5) H Immature Granulocyte % (Auto) 0.2 % (0-1) Neutrophils (%) (Auto) 64.8 % (40.0-77.0) Lymphocytes (%) (Auto) 22.2 % (21.0-51.0) Monocytes (%) (Auto) 10.1 % (3.0-13.0) Eosinophils (%) (Auto) 2.1 % (0.0-8.0) Basophils (%) (Auto) 0.6 % (0.0-5.0) Neutrophils # (Auto) 3.2 K/uL (1.8-7.7) Lymphocytes # (Auto) 1.1 K/uL (1.0-4.8) Monocytes # (Auto) 0.5 K/uL (0.1-1.0) Eosinophils # (Auto) 0.10 K/uL (0.00-0.70) Basophils # (Auto) 0.03 K/uL (0.00-0.20) Absolute Immature Granulocyte (auto 0.01 K/uL (0-1) Nucleated Red Blood Cells 0.0 % (0.0-0.19) Red Blood Cell Morphology See comments Sodium Level 140 mmol/L (136-145) Potassium Level 4.4 mmol/L (3.5-5.1) Chloride Level 103 mmol/L (101-111) Carbon Dioxide Level 26 mmol/L (21-32) Blood Urea Nitrogen 53 mg/dL (7-18) H Creatinine 1.5 mg/dL (0.5-1.3) H Glomerular Filtration Rate Calc 46 mL/min (>90) Random Glucose 161 mg/dL (70-105) H Total Calcium 8.5 mg/dL (8.5-10.1) Magnesium Level 2.00 mg/dL (1.80-2.40) Total Creatine Kinase 88 U/L (21-232) # Troponin I High Sensitivity 19 ng/L (4-75) B-Type Natriuretic Peptide 3230 pg/mL (0-100) H Labs Reviewed?: Yes EKG/XRAY/US/CT/MRI EKG Comment 04/12/2025 TIME 3:42 P.M. VENTRICULAR RATE [address] WAVE ELEVATION OR DEPRESSION X-RAY Comment [address] [place] [address] [place] [address] IMAGING REPORT Signed PATIENT: REED LO MR#: [id number] : 1940 SEX: M AGE: 84 LOCATION: [facility] ORDER [id number] STATUS: REG ER REPORT#: [id number] SERVICE [id number] REASON: SOB ORDERING PHYSICIAN: MARGA NOBLE MD PROCEDURE: CXR1VW - CHEST 1VW CHEST 1VW HISTORY: Shortness of breath COMPARISON: 01/15/2025 FINDINGS: A frontal projection of the chest was obtained. Mild bilateral pulmonary infiltrates are seen may be related to mild pulmonary vascular congestion with possible superimposed pneumonitis. The heart is borderline enlarged. Pacemaker is seen entering from the left. No evidence of aortic calcification is seen. IMPRESSION: 1. Mild bilateral pulmonary infiltrates are seen may be related to mild pulmonary vascular congestion with possible superimposed pneumonitis. DICTATED BY: RENÉ GLYNN MD DATE: 04/12/251623 ELECTRONICALLY SIGNED BY: RENÉ GLYNN MD DATE: 04/12/251627 MDM MDM: DIFFERENTIAL DIAGNOSIS: CHF EXACERBATION, SHORTNESS OF BREATH, RATIONALE: TESTS CONSIDERED AND ORDERED SECONDARY TO SHARED DECISION MAKING INCLUDE: LABS, ECG AND RADIOLOGY PREVIOUS OUTSIDE RECORDS REVIEWED: OLD ER VISITS. RISK OF COMPLICATION AND/OR MORBIDITY OR MORTALITY OF PATIENT MANAGEMENT: NONE MEDICATIONS-PER MEDICATION RECONCILIATION NEED FOR HOSPITALIZATION: PATIENT DOES MEET CRITERIA FOR HOSPITALIZATION. NEED FOR EMERGENCY MAJOR/MINOR SURGERY: NO THERE ARE NO SOCIAL CONCERNS WITH THIS PATIENT. PRESCRIPTION DRUG MANAGEMENT PRESCRIPTIONS WILL INCLUDE SYMPTOMATIC CARE PATIENT'S PRIOR EXTERNAL MEDICAL RECORDS FROM OTHER ER VISITS WERE REVIEWED BY ME INDICATED. PRIOR TESTING AND RESULTS FROM PREVIOUS VISITS WERE REVIEWED. PRIOR TESTS WERE TAKEN INTO ACCOUNT WITH MEDICAL DECISION MAKING AND RESOURCE UTILIZATION, INDEPENDENT HISTORIAN/HISTORIANS WERE USED TO OBTAIN COMPLETE MEDICAL HISTORY. I INDEPENDENTLY INTERPRETED THE TEST THAT WERE PERFORMED, RESULTS WERE REVIEWED BY ME AND CONSIDERED FINDINGS ON RADIOLOGY IF ORDERED. MEDICAL MANAGEMENT AND EXAMINATION INTERPRETATION DISCUSSIONS WERE HAD BY ME WITH OTHER QUALIFIED HEALTHCARE PROFESSIONALS INDICATED FOR THE PATIENT'S CARE. Patient will be admitted under the care of [facility] for ongoing management ED Course Orders Procedure Category Date Status Time Cbc With Differential LAB 04/12/25 Complete 15:34 B-Type Natriuretic LAB 04/12/25 Complete Peptide 15:34 Chest 1vw RAD 04/12/25 Resulted 15:34 12 Lead Ekg Tracing- EKG 04/12/25 Complete Technical 15:34 Magnesium LAB 04/12/25 Complete 15:34 Creatine Kinase, Total LAB 04/12/25 Complete 15:34 Troponin I High LAB 04/12/25 Complete Sensitivity 15:34 Urinalysis Profile LAB 04/12/25 Logged 15:34 Basic Metabolic Panel LAB 04/12/25 Complete 15:34 Furosemide 40mg Vial PHA 04/12/25 Complete (Lasix 40mg Vial) 17:30 Current Medications Medications (Trade) Dose Ordered Sig/Rowena Route PRN Reason Start Time Stop Time Status Last Admin Dose Admin Furosemide (LASix 40MG VIAL) 40 mg ONCE ONCE IV 04/12/25 17:30 04/12/25 17:39 DC Vital Signs Date Time Temp Pulse Resp B/P (MAP) Pulse Ox O2 Delivery O2 Flow Rate FiO2 04/12/25 15:32 96.4 78 18 95/62 100 Room Air 0 Critical Care Note Comments Critical Care Procedure Note Authorized and Performed by: me Total critical care time: Approximately 36 minutes Due to a high probability of clinically significant, life threatening deterioration, the patient required my highest level of preparedness to intervene emergently and I personally spent this critical care time directly and personally managing the patient. This critical care time included obtaining a history; examining the patient; pulse oximetry; ordering and review of studies; arranging urgent treatment with development of a management plan; evaluation of patient's response to treatment; frequent reassessment; and, discussions with other providers. This critical care time was performed to assess and manage the high probability of imminent, life-threatening deterioration that could result in multi-organ failure. It was exclusive of separately billable procedures and treating other patients and teaching time. Please see MDM section and the rest of the note for further information on patient assessment and treatment. DX & DISP Disposition: Inpatient Decision to Admit Time: 17:41 Departure Impression: Primary Impression: Fluid retention Additional Impressions: Hypoxia, Acute on chronic combined systolic and diastolic CHF (congestive heart failure) Condition: Stable Referrals: ARCELIA BECKHAM MD (PCP) MARGA NOBLE MD Apr 12, 2025 15:39
[2025-04-12 16:05] LABS: BASOPHILS # (AUTO) 0.03 K/uL (0.00-0.20); BASOPHILS % (AUTO) 0.6 % (0.0-5.0); EOSINOPHILS % (AUTO) 2.1 % (0.0-8.0); HEMATOCRIT 42.9 % (42-54); IMMATURE GRANULOCYTE ABSOLUTE 0.01 K/uL (0-1); LYMPHOCYTES # (AUTO) 1.1 K/uL (1.0-4.8); LYMPHOCYTES % (AUTO) 22.2 % (21.0-51.0); MEAN CORPUSCULAR HEMOGLOBIN 27.7 pg (27.0-33.0); MEAN CORPUSCULAR HGB CONC 30.1 g/dL (32.0-36.0); MEAN CORPUSCULAR VOLUME 92.1 fL (79-99); MONOCYTES # (AUTO) 0.5 K/uL (0.1-1.0); MONOCYTES % (AUTO) 10.1 % (3.0-13.0); NEUTROPHILS # (AUTO) 3.2 K/uL (1.8-7.7); NEUTROPHILS % (AUTO) 64.8 % (40.0-77.0); PLATELET COUNT (AUTO) 170 K/uL (130-400); RED BLOOD CELL COUNT(AUTO) 4.66 MIL/uL (4.50-6.20); RED CELL DISTRIBUTION WIDTH 18.8 % (11.0-15.5); WHITE BLOOD COUNT (AUTO) 4.9 K/uL (4.8-10.8)
--- NOTE | 2025-04-12 16:06 | EKG ---
[facility] Test Date: 2025-04-12 Test Time: 15:42:42 Pat Name: REED LO Department: ED Room: 323 Gender: M Proposal Development Manager: [id number] : 1940 Requested By: MARGA NOBLE Order Number: [id number] Reading MD: Matty Jin Measurements Intervals [place] Rate: 81 P: 87 IA: 209 QRS: -76 QRSD: 135 T: 121 QT: 451 QTc: 523 Interpretive Statements Atrial tracking and Kv-Bclfsgvqdql-iytdx rhythm Compared to ECG 01/15/2025 23:23:39 No significant changes Electronically Signed On 04-14-2025 20:58:31 CDT by Matty Jin Please click the below link to view image of tracing.
[2025-04-12 16:13] LABS: CREATININE 1.5 mg/dL (0.5-1.3); POTASSIUM 4.4 mmol/L (3.5-5.1)
[2025-04-12 16:25] LABS: B-TYPE NATRIURETIC PEPTIDE 3230 pg/mL (0-100)
--- NOTE | 2025-04-12 16:28 | HMCIMG ---
CHEST 1VW HISTORY: Shortness of breath COMPARISON: 01/15/2025 FINDINGS: A frontal projection of the chest was obtained. Mild bilateral pulmonary infiltrates are seen may be related to mild pulmonary vascular congestion with possible superimposed pneumonitis. The heart is borderline enlarged. Pacemaker is seen entering from the left. No evidence of aortic calcification is seen. IMPRESSION: 1. Mild bilateral pulmonary infiltrates are seen may be related to mild pulmonary vascular congestion with possible superimposed pneumonitis.
--- NOTE | 2025-04-12 16:35 | NUR ---
rec pt in room at this time
[2025-04-12] MEDS: furoSEMIDE 40MG VIAL IV ONE (17:52)
[2025-04-12 18:55] LABS: APPEARANCE,URINE CLEAR (CLEAR); BILIRUBIN,URINE NEGATIVE (NEGATIVE); COLOR,URINE LIGHT-YELLOW (YELLOW); GLUCOSE, URINE (UA) >=1000 mg/dL (NEGATIVE); KETONES,URINE NEGATIVE (NEGATIVE); LEUKOCYTE ESTERASE ,URINE NEGATIVE Leu/uL (NEGATIVE); NITRATE,URINE NEGATIVE (NEGATIVE); OCCULT BLOOD,URINE NEGATIVE (NEGATIVE); PROTEIN,URINE NEGATIVE (NEGATIVE); UROBILINOGEN,URINE 0.2 mg/dL (0.2-1.0)
[2025-04-12 19:08] LABS: ADD UA MICROSCOPIC YES
[2025-04-12 19:19] LABS: BACTERIA,URINE RARE /HPF (None Seen); MUCUS,URINE RARE LPF (None Seen); RBC,URINE 0-1 /HPF (0-1); SQUAMOUS EPITHELIAL CELL,UR RARE /HPF (0-2); WBC CLUMP RARE /HPF (0-1)
--- NOTE | 2025-04-12 19:28 | HP ---
[facility] HISTORY & PHYSICAL Date Patient Seen: Apr 12, 2025 Time of Visit: 19:27 Supervising Physician: Dr. Héctor Khanna Primary Care Physician: Dr. No Outpatient Specialists: Dr. Khanna Inpatient Consults: [ ] PROBLEM LIST: CHF in acute exacerbation, troponin negative, BNP above 3000, chest x-ray showed bilateral congestion POA Hypertension, POA DM type 2, with hyperglycemia, POA Acute kidney injury, POA Hyperlipidemia, POA History of CAD as s/p stent placement, pacemaker/AICD in situ PLAN: Admit to medical-surgical floor with telemetry VS per unit protocol Continue DuoNeb q.6 Heart healthy diet Lasix 40 mg IV b.i.d. Up ad nayla Bilateral SCDs Keep head of bed above 30 Weigh daily Avoid nephrotoxic agents Renally dose all medications CBC, CMP, magnesium level daily HPI: 84-year-old male with past medical history of hypertension, DM type 2, CAD as s/p stent placement, pacemaker/AICD, hyperlipidemia, congestive heart failure, who presented to ED via private vehicle with complaint of worsening shortness of breath, with associated bilateral lower extremity swelling and found to have acute kidney injury, and CHF in acute exacerbation. Patient was seen and examined in ED with no relatives present at bedside. According to him he has been noticing increased in swelling of his lower extremities, also he gained couple of lb with a past weeks. Apparently patient was seen by his remote ruby on rails developer a week ago with no changes on his current medications, he is taking Lasix daily. There is no associated productive cough, fever, back pain, or confusion. In ED stat chest x-ray was done and showed bilateral congestion with s uperimposed pneumonitis, CBC is unrevealing for any acute infection or anemia, his chemistry is significant for creatinine level of 1.5 consistent with acute kidney injury. In ED patient was initiated on IV Lasix and neb treatment. At present patient is currently hemodynamically stable, on room air with appropriate oxygen saturation, denies any headache, chest pain, shortness of breath, fever, flu-like symptoms, abdominal pain, or difficulty urinating. On examination there is coarse lung sounds on left lung callahan, abdomen is soft with bowel sounds all throughout, there is 3+ pitting edema on bilateral lower extremity, some calf tenderness bilaterally. Patient is an ex-smoker, denies any alcohol intake, or illicit drug use. Patient was previously vaccinated with COVID, and does not take flu shot. PAST MEDICAL HX: see above PAST SURGICAL HX: noncontributory SOCIAL HISTORY: See HPI Coded Allergies: No Known Drug Allergies (Unverified Allergy, Unknown, 05/17/18) REVIEW OF SYSTEMS: 12 point ROS reviewed with patient. Pertinent positives mentioned above. Otherwise negative. PHYSICAL EXAM: GENERAL: alert, weak, awake oriented x 3 HEENT: EOMI, Sclera non icteric, moist mucosa NECK: Supple, no JVD, trachea midline LUNGS: Coarse lung sounds to left lung callahan HEART: Regular rate and rhythm. Normal S1 and S2, without murmurs ABD: Abdomen soft, nontender. Bowel sounds present EXT: No clubbing cyanosis 3+ bilateral pitting edema NEURO: Alert and oriented to person, follows commands Vital Signs (last 8hr) Date Time Temp Pulse Resp B/P (MAP) Pulse Ox O2 Delivery O2 Flow Rate FiO2 04/12/25 17:46 98.1 81 16 108/63 98 Room Air* 0 21 04/12/25 15:32 96.4 78 18 95/62 100 Room Air 0 LABS: Hematology Labs: Test 04/12/25 16:01 Range/Units White Blood Count 4.9 4.8-10.8 K/uL Red Blood Count 4.66 4.50-6.20 MIL/uL Hemoglobin 12.9 L 14.0-18.0 g/dL Hematocrit 42.9 42-54 % Mean Corpuscular Volume 92.1 79-99 fL Mean Corpuscular Hemoglobin 27.7 27.0-33.0 pg Mean Corpuscular Hemoglobin Concent 30.1 L 32.0-36.0 g/dL Red Cell Distribution Width 18.8 H 11.0-15.5 % Platelet Count 170 130-400 K/uL Mean Platelet Volume 10.8 H 7.5-10.5 fL Immature Granulocyte % (Auto) 0.2 0-1 % Neutrophils (%) (Auto) 64.8 40.0-77.0 % Lymphocytes (%) (Auto) 22.2 21.0-51.0 % Monocytes (%) (Auto) 10.1 3.0-13.0 % Eosinophils (%) (Auto) 2.1 0.0-8.0 % Basophils (%) (Auto) 0.6 0.0-5.0 % Neutrophils # (Auto) 3.2 1.8-7.7 K/uL Lymphocytes # (Auto) 1.1 1.0-4.8 K/uL Monocytes # (Auto) 0.5 0.1-1.0 K/uL Eosinophils # (Auto) 0.10 0.00-0.70 K/uL Basophils # (Auto) 0.03 0.00-0.20 K/uL Absolute Immature Granulocyte (auto 0.01 0-1 K/uL Nucleated Red Blood Cells 0.0 0.0-0.19 % Red Blood Cell Morphology See comments Chemistry Labs: Test 04/12/25 16:01 Range/Units Sodium Level 140 136-145 mmol/L Potassium Level 4.4 3.5-5.1 mmol/L Chloride Level 103 101-111 mmol/L Carbon Dioxide Level 26 21-32 mmol/L Blood Urea Nitrogen 53 H 7-18 mg/dL Creatinine 1.5 H 0.5-1.3 mg/dL Glomerular Filtration Rate Calc 46 >90 mL/min Random Glucose 161 H 70-105 mg/dL Total Calcium 8.5 8.5-10.1 mg/dL Magnesium Level 2.00 1.80-2.40 mg/dL Total Creatine Kinase 88 # 21-232 U/L Troponin I High Sensitivity 19 4-75 ng/L B-Type Natriuretic Peptide 3230 H 0-100 pg/mL DIAGNOSTICS / RADIOLOGY RESULTS: CHEST 1VW HISTORY: Shortness of breath COMPARISON: 01/15/2025 FINDINGS: A frontal projection of the chest was obtained. Mild bilateral pulmonary infiltrates are seen may be related to mild pulmonary vascular congestion with possible superimposed pneumonitis. The heart is borderline enlarged. Pacemaker is seen entering from the left. No evidence of aortic calcification is seen. IMPRESSION: 1. Mild bilateral pulmonary infiltrates are seen may be related to mild pulmonary vascular congestion with possible superimposed pneumonitis. PLAN NEURO: Minimize central acting medications as possible. Maintain fall precautions, adequate lighting during the day PULMONARY: Supplemental 02 as needed. Maintain aspiration precautions at all times CARDIOVASCULAR: Follow hemodynamics. Vital signs per facility protocol GI & NUTRITION: Continue with nutritional support. Continue stool softeners and laxatives as needed. KIDNEYS & ELECTROLYTES: Strict monitoring of intake, output and overall fluid balance. Avoid nephrotoxic medications to the extent possible. Medications to be dosed according to renal function. Monitor electrolytes and replace as needed ENDOCRINE: Maintain blood glucose between 100-180 at all times. Hypoglycemia protocol in place INFECTIOUS DISEASE: Trend temperature, WBC and procalcitonin level Follow cultures, deescalate antibiotics as soon as possible. Panculture if new onset fever ONCOLOGY/HEMATOLOGY/COAGULATION: Monitor for s/s of bleeding Monitor hemoglobin, coagulation studies as needed SKIN: Pressure ulcer prevention per facility protocol Specialty mattress ORTHO/REHAB: Continue PT/OT Prophylaxis: Continue GI and DVT prophylaxis Code Status: Full Resuscitation Disposition: TBD Supervising physician: BAILEY Flores ACTIVITY THERAPY SPECIALIST Apr 12, 2025 19:28
[2025-04-12] MEDS ORDERED: acetaMINOPHEN 325 MG TAB PO PRN (19:30)
[2025-04-12] MEDS ORDERED: HYDROcodone/APAP 5/325 1 TAB TABLET PO PRN ×2 (19:30→20:00)
[2025-04-12] MEDS ORDERED: acetaMINOPHEN 650 MG SUPPOSITORY RC PRN (19:30)
[2025-04-12] MEDS ORDERED: ALBUTEROL 0.083% 2.5 MG/3 ML INH IH PRN (19:30)
[2025-04-12] MEDS: INSULIN humuLIN R 100 UNIT/ML 3ML SQ SCH (20:19)
[2025-04-12] MEDS: HEParin 5,000 UNIT VIAL SQ SCH (20:24)
[2025-04-12] MEDS: furoSEMIDE 40MG VIAL IV SCH (20:24)
[2025-04-12] MEDS: FAMOTIDINE 20MG TAB PO SCH (20:25)
[2025-04-12 23:50] VITALS: PULSE 77; RESP 17; O2SAT 100
[2025-04-13] VITALS (10 sets, daily range): BP systolic 94–107; BP diastolic 50–64; PULSE 69–89; RESP 16–20; TEMP 97.5–98.4; O2SAT 96–100
--- NOTE | 2025-04-13 | NUR ---
Contact info daughter Enedelia Delong (Daughter) [phone]
--- NOTE | 2025-04-13 01:30 | NUR ---
ADMISSION NOTE RECEIVED TELEPHONE REPORT FROM KASHIF BLANCAS. PATIENT ALERT, ORIENTED, AND ABLE TO MAKE NEEDS KNOWN. PATIENT DOES NOT HAVE HOME MEDICATIONS OR LIST. PER REPORT, PATIENT PENDING TO HAVE FAMILY BRING MEDICATION LIST IN AM. PATIENT ORIENTED TO CALL L[employer] FALL POLICIES. CALL LIGHT IN REACH OF PATIENT.
[2025-04-13 05:46] LABS: BASOPHILS # (AUTO) 0.05 K/uL (0.00-0.20); HEMATOCRIT 39.4 % (42-54); IMMATURE GRANULOCYTE ABSOLUTE 0.02 K/uL (0-1); LYMPHOCYTES # (AUTO) 0.9 K/uL (1.0-4.8); LYMPHOCYTES % (AUTO) 18.4 % (21.0-51.0); MEAN CORPUSCULAR HGB CONC 31.7 g/dL (32.0-36.0); MEAN CORPUSCULAR VOLUME 88.3 fL (79-99); MONOCYTES # (AUTO) 0.5 K/uL (0.1-1.0); MONOCYTES % (AUTO) 10.8 % (3.0-13.0); NEUTROPHILS # (AUTO) 3.3 K/uL (1.8-7.7); NEUTROPHILS % (AUTO) 67.4 % (40.0-77.0); PLATELET COUNT (AUTO) 173 K/uL (130-400); RED BLOOD CELL COUNT(AUTO) 4.46 MIL/uL (4.50-6.20); RED CELL DISTRIBUTION WIDTH 18.5 % (11.0-15.5); WHITE BLOOD COUNT (AUTO) 4.9 K/uL (4.8-10.8)
[2025-04-13 06:03] LABS: CREATININE 1.4 mg/dL (0.5-1.3); MAGNESIUM 2.1 mg/dL (1.80-2.40); PHOSPHORUS 3.9 mg/dL (2.5-4.9); POTASSIUM 4.1 mmol/L (3.5-5.1)
[2025-04-13] MEDS: ASCORBIC ACID 500 MG TAB PO SCH (09:26)
[2025-04-13] MEDS: FERROUS SULFATE 325 MG TABLET.DR PO SCH (09:26)
--- NOTE | 2025-04-13 09:53 | NUR ---
DCP: HOME Pt currently lives alone in his home and states that his sister checks in on him frequently. Pt does not report any insecurities with food, retirement, and/or utilities. Pt does not have DME, home health, and/or provider services. Pt states that he is able to complete ADLs independently. PCP is Dr. Tavares No and has his RX mailed in. At [place] pt will want to go home and pt drove himself here. Addendum: 04/13/25 at 0956 by ROSE LA SS Amended: Links added.
[2025-04-14] VITALS (12 sets, daily range): BP systolic 97–129; BP diastolic 58–92; PULSE 65–90; RESP 18–21; TEMP 97.4–98; O2SAT 96–100
--- NOTE | 2025-04-14 10:35 | PN ---
[facility] PROGRESS NOTE BACK DATED ENTRY 04/13/25 Date Patient Seen: Apr 13, 2025 Time of Visit: 11:15 Supervising Physician: Dr. Héctor Nelson Primary Care Physician: Dr. No Outpatient Specialists: Dr. 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 DuoNebs scheduled q.6 hours Daily weight Diet heart healthy, low-sodium Limit fluid 1.5 L daily DVT prophylaxis managed with SCDs Aspiration precautions, keep head of the bed greater than 35 Patient to be out of bed for all meals Incentive spirometer at bedside patient to use 6/10 an hour when not asleep A.m. labs has been ordered for tomorrow: CBC CMP BNP magnesium level, and hepatic panel INTERVAL HISTORY: 84-year-old male with past medical history of hypertension, DM type 2, CAD as s/p stent placement, pacemaker/AICD, hyperlipidemia, congestive heart failure, who presented to ED via private vehicle with complaint of worsening shortness of breath, with associated bilateral lower extremity swelling and found to have acute kidney injury, and CHF in acute exacerbation. Patient was seen and examined in ED with no relatives present at bedside. According to him he has been noticing increased in swelling of his lower extremities, also he gained couple of lb with a past weeks. Apparently patient was seen by his aviation electrician a week ago with no changes on his current medications, he is taking Lasix daily. There is no associated productive cough, fever, back pain, or confusion. In ED stat chest x-ray was done and showed bilateral congestion with superimposed pneumonitis, CBC is unrevealing for any acute infection or anemia, his chemistry is significant for creatinine level of 1.5 consistent with acute kidney injury. In ED patient was initiated on IV Lasix and neb treatment. At present patient is currently hemodynamically stable, on room air with appropriate oxygen saturation, denies any headache, chest pain, shortness of breath, fever, flu-like symptoms, abdominal pain, or difficulty urinating. On examination there is coarse lung sounds on left lung callahan, abdomen is soft with bowel sounds all throughout, there is 3+ pitting edema on bilateral lower extremity, some calf tenderness bilaterally. Patient is an ex-smoker, denies any alcohol intake, or illicit drug use. Patient was previously vaccinated with COVID, and does not take flu shot. 04/13-assess patient in bed family members present. Discussed reviewed laboratory results, vital signs and diagnostic tests performed. Patient denies shortness or breath, fever, chills, nauseousness, diarrhea currently. Patient is hemodynamically stable. Continue with the plan of treatment which is going to be Lasix 40 mg IV b.i.d. daily, ordering a.m. labs for tomorrow. The patient's condition is guarded REVIEW OF SYSTEMS: 12 point ROS reviewed with patient. Pertinent positives mentioned above. Otherwise negative. PHYSICAL EXAM: GENERAL: alert, alert, awake oriented x 3 HEENT: EOMI, Sclera non icteric, moist mucosa NECK: Supple, no JVD, trachea midline LUNGS: Coarse lung sounds to left lung callahan HEART: Regular rate and rhythm. Normal S1 and S2, without murmurs ABD: Abdomen soft, nontender. Bowel sounds present EXT: No clubbing cyanosis 3+ bilateral pitting edema NEURO: Alert and oriented to person, follows commands Vital Signs (last 8hr) Date Time Temp Pulse Resp B/P (MAP) Pulse Ox O2 Delivery O2 Flow Rate FiO2 04/14/25 08:14 97.7 81 18 129/92 96 Room Air 04/14/25 07:56 82 18 N/A Room Air 21 04/14/25 04:35 98.1 85 20 97/59 100 Room Air 04/14/25 03:56 21 LABS: Hematology Labs: Test 04/13/25 05:25 04/12/25 16:01 Range/Units White Blood Count 4.9 4.8-10.8 K/uL Red Blood Count 4.46 L 4.50-6.20 MIL/uL Hemoglobin 12.5 L 14.0-18.0 g/dL Hematocrit 39.4 L 42-54 % Mean Corpuscular Volume 88.3 79-99 fL Mean Corpuscular Hemoglobin 28.0 27.0-33.0 pg Mean Corpuscular Hemoglobin Concent 31.7 L 32.0-36.0 g/dL Red Cell Distribution Width 18.5 H 11.0-15.5 % Platelet Count 173 130-400 K/uL Mean Platelet Volume 11.5 H 7.5-10.5 fL Immature Granulocyte % (Auto) 0.4 0-1 % Neutrophils (%) (Auto) 67.4 40.0-77.0 % Lymphocytes (%) (Auto) 18.4 L 21.0-51.0 % Monocytes (%) (Auto) 10.8 3.0-13.0 % Eosinophils (%) (Auto) 2.0 0.0-8.0 % Basophils (%) (Auto) 1.0 0.0-5.0 % Neutrophils # (Auto) 3.3 1.8-7.7 K/uL Lymphocytes # (Auto) 0.9 L 1.0-4.8 K/uL Monocytes # (Auto) 0.5 0.1-1.0 K/uL Eosinophils # (Auto) 0.10 0.00-0.70 K/uL Basophils # (Auto) 0.05 0.00-0.20 K/uL Absolute Immature Granulocyte (auto 0.02 0-1 K/uL Nucleated Red Blood Cells 0.0 0.0-0.19 % Red Blood Cell Morphology See comments Chemistry Labs: Test 04/14/25 04:47 04/13/25 05:25 04/12/25 16:01 Range/Units Whole Blood Glucose 100 70-110 MG/DL Sodium Level 140 136-145 mmol/L Potassium Level 4.1 3.5-5.1 mmol/L Chloride Level 104 101-111 mmol/L Carbon Dioxide Level 26 21-32 mmol/L Blood Urea Nitrogen 51 H 7-18 mg/dL Creatinine 1.4 H 0.5-1.3 mg/dL Glomerular Filtration Rate Calc 50 >90 mL/min Random Glucose 184 H 70-105 mg/dL Total Calcium 8.9 8.5-10.1 mg/dL Phosphorus Level 3.9 2.5-4.9 mg/dL Magnesium Level 2.10 1.80-2.40 mg/dL Total Creatine Kinase 88 # 21-232 U/L Troponin I High Sensitivity 19 4-75 ng/L B-Type Natriuretic Peptide 3230 H 0-100 pg/mL DIAGNOSTICS / RADIOLOGY RESULTS: [ ] PLAN: Continue with telemetry monitoring Lasix 40 mg IV push b.i.d. Han scheduled q.6 hours Daily weight Diet heart healthy, low-sodium Limit fluid 1.5 L daily DVT prophylaxis managed with SCDs Aspiration precautions, keep head of the bed greater than 35 Patient to be out of bed for all meals Incentive spirometer at bedside patient to use 6/10 an hour when not asleep A.m. labs has been ordered for tomorrow: CBC CMP BNP magnesium level, and hepatic panel NEURO: Minimize central acting medications as possible. Maintain fall precautions, adequate lighting during the day PULMONARY: Supplemental 02 as needed. Maintain aspiration precautions at all times CARDIOVASCULAR: Follow hemodynamics. Vital signs per facility protocol GI & NUTRITION: Continue with nutritional support. Continue stool softeners and laxatives as needed. KIDNEYS & ELECTROLYTES: Strict monitoring of intake, output and overall fluid balance. Avoid nephrotoxic medications to the extent possible. Medications to be dosed according to renal function. Monitor electrolytes and replace as needed ENDOCRINE: Maintain blood glucose between 100-180 at all times. Hypoglycemia protocol in place INFECTIOUS DISEASE: Trend temperature, WBC and procalcitonin level Follow cultures, deescalate antibiotics as soon as possible. Panculture if new onset fever ONCOLOGY/HEMATOLOGY/COAGULATION: Monitor for s/s of bleeding Monitor hemoglobin, coagulation studies as needed SKIN: Pressure ulcer prevention per facility protocol Specialty mattress ORTHO/REHAB: Continue PT/OT Prophylaxis: Continue GI and DVT prophylaxis Code Status: Full Resuscitation Disposition: TBD Critical care time exceeds 44 minutes excluding procedural time because of the complexity patient's case involving a failing system. Discussed with my supervising physician ineffective plan to maximize patient's health. DAMION GRIFFITH NP Apr 14, 2025 10:34
[2025-04-14 11:05] LABS: BASOPHILS # (AUTO) 0.05 K/uL (0.00-0.20); BASOPHILS % (AUTO) 0.8 % (0.0-5.0); EOSINOPHILS # (AUTO) 0.08 K/uL (0.00-0.70); EOSINOPHILS % (AUTO) 1.4 % (0.0-8.0); HEMATOCRIT 44.8 % (42-54); IMMATURE GRANULOCYTE ABSOLUTE 0.01 K/uL (0-1); LYMPHOCYTES # (AUTO) 1.5 K/uL (1.0-4.8); LYMPHOCYTES % (AUTO) 25.7 % (21.0-51.0); MEAN CORPUSCULAR HGB CONC 31.3 g/dL (32.0-36.0); MEAN CORPUSCULAR VOLUME 89.6 fL (79-99); MONOCYTES # (AUTO) 0.4 K/uL (0.1-1.0); MONOCYTES % (AUTO) 7.3 % (3.0-13.0); NEUTROPHILS # (AUTO) 3.8 K/uL (1.8-7.7); NEUTROPHILS % (AUTO) 64.6 % (40.0-77.0); PLATELET COUNT (AUTO) 204 K/uL (130-400); RED CELL DISTRIBUTION WIDTH 18.7 % (11.0-15.5); WHITE BLOOD COUNT (AUTO) 5.9 K/uL (4.8-10.8)
[2025-04-14 11:20] LABS: BILIRUBIN,DIRECT 0.9 mg/dL (0.0-0.3); BILIRUBIN,TOTAL 1.7 mg/dL (0.2-1.0); CREATININE 1.5 mg/dL (0.5-1.3); MAGNESIUM 2.1 mg/dL (1.80-2.40); POTASSIUM 3.1 mmol/L (3.5-5.1); TOTAL PROTEIN, SERUM 8.2 g/dL (6.0-8.3)
--- NOTE | 2025-04-14 14:37 | PN ---
[facility] PROGRESS NOTE Date Patient Seen: Apr 14, 2025 Time of Visit: 14:36 Supervising Physician: Dr. Héctor Nelson Primary Care Physician: Dr. No Outpatient Specialists: Dr. 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 DuoNebs scheduled q.6 hours Daily weight Diet heart healthy, low-sodium Limit fluid 1.5 L daily DVT prophylaxis managed with SCDs Aspiration precautions, keep head of the bed greater than 35 Patient to be out of bed for all meals Incentive spirometer at bedside patient to use 6/10 an hour when not asleep A.m. labs has been ordered for tomorrow: CBC CMP BNP magnesium level, and hepatic panel INTERVAL HISTORY: Patient evaluated at bedside today present, currently sitting up in his chair, patient continues on Lasix 40 mg b.i.d., most recent BNP was greater than 3000, pending BNP labs in the morning. Patient continues with lower extremity edema, 2+ pitting edema. We will increase the patient's Lasix dose for two q.8 hours and re-evaluate tomorrow for possible discharge. Patient on room air, no further complaints at this time. REVIEW OF SYSTEMS: 12 point ROS reviewed with patient. Pertinent positives mentioned above. Otherwise negative. PHYSICAL EXAM: GENERAL: alert, alert, awake oriented x 3 HEENT: EOMI, Sclera non icteric, moist mucosa NECK: Supple, no JVD, trachea midline LUNGS: Coarse lung sounds to left lung callahan HEART: Regular rate and rhythm. Normal S1 and S2, without murmurs ABD: Abdomen soft, nontender. Bowel sounds present EXT: No clubbing cyanosis 3+ bilateral pitting edema NEURO: Alert and oriented to person, follows commands Vital Signs (last 8hr) Date Time Temp Pulse Resp B/P (MAP) Pulse Ox O2 Delivery O2 Flow Rate FiO2 04/14/25 11:41 97.7 90 18 113/65 96 Room Air 04/14/25 08:14 97.7 81 18 129/92 96 Room Air 04/14/25 07:56 82 18 N/A Room Air 21 LABS: Hematology Labs: Test 04/14/25 10:55 04/12/25 16:01 Range/Units White Blood Count 5.9 4.8-10.8 K/uL Red Blood Count 5.00 4.50-6.20 MIL/uL Hemoglobin 14.0 14.0-18.0 g/dL Hematocrit 44.8 42-54 % Mean Corpuscular Volume 89.6 79-99 fL Mean Corpuscular Hemoglobin 28.0 27.0-33.0 pg Mean Corpuscular Hemoglobin Concent 31.3 L 32.0-36.0 g/dL Red Cell Distribution Width 18.7 H 11.0-15.5 % Platelet Count 204 130-400 K/uL Mean Platelet Volume 10.8 H 7.5-10.5 fL Immature Granulocyte % (Auto) 0.2 0-1 % Neutrophils (%) (Auto) 64.6 40.0-77.0 % Lymphocytes (%) (Auto) 25.7 21.0-51.0 % Monocytes (%) (Auto) 7.3 3.0-13.0 % Eosinophils (%) (Auto) 1.4 0.0-8.0 % Basophils (%) (Auto) 0.8 0.0-5.0 % Neutrophils # (Auto) 3.8 1.8-7.7 K/uL Lymphocytes # (Auto) 1.5 1.0-4.8 K/uL Monocytes # (Auto) 0.4 0.1-1.0 K/uL Eosinophils # (Auto) 0.08 0.00-0.70 K/uL Basophils # (Auto) 0.05 0.00-0.20 K/uL Absolute Immature Granulocyte (auto 0.01 0-1 K/uL Nucleated Red Blood Cells 0.0 0.0-0.19 % Red Blood Cell Morphology See comments Chemistry Labs: Test 04/14/25 11:26 04/14/25 10:55 04/13/25 05:25 04/12/25 16:01 Range/Units Whole Blood Glucose 178 #H 70-110 MG/DL Sodium Level 138 136-145 mmol/L Potassium Level 3.1 L 3.5-5.1 mmol/L Chloride Level 99 L 101-111 mmol/L Carbon Dioxide Level 26 21-32 mmol/L Blood Urea Nitrogen 47 H 7-18 mg/dL Creatinine 1.5 H 0.5-1.3 mg/dL Glomerular Filtration Rate Calc 46 >90 mL/min Random Glucose 166 H 70-105 mg/dL Total Calcium 9.2 8.5-10.1 mg/dL Magnesium Level 2.10 1.80-2.40 mg/dL Total Bilirubin 1.7 H 0.2-1.0 mg/dL Direct Bilirubin 0.9 H 0.0-0.3 mg/dL Aspartate Amino Transf (AST/SGOT) 21 10-37 U/L Alanine Aminotransferase (ALT/SGPT) 20 12-78 U/L Alkaline Phosphatase 91 50-136 U/L Total Protein 8.2 6.0-8.3 g/dL Albumin 4.0 3.5-5.0 g/dL Phosphorus Level 3.9 2.5-4.9 mg/dL Total Creatine Kinase 88 # 21-232 U/L Troponin I High Sensitivity 19 4-75 ng/L B-Type Natriuretic Peptide 3230 H 0-100 pg/mL DIAGNOSTICS / RADIOLOGY RESULTS: [ ] PLAN: Continue with telemetry monitoring Lasix 40 mg IV push b.i.d. DuoNebs scheduled q.6 hours Daily weight Diet heart healthy, low-sodium Limit fluid 1.5 L daily DVT prophylaxis managed with SCDs Aspiration precautions, keep head of the bed greater than 35 Patient to be out of bed for all meals Incentive spirometer at bedside patient to use 6/10 an hour when not asleep A.m. labs has been ordered for tomorrow: CBC CMP BNP magnesium level, and hepatic panel NEURO: Minimize central acting medications as possible. Maintain fall precautions, adequate lighting during the day PULMONARY: Supplemental 02 as needed. Maintain aspiration precautions at all times CARDIOVASCULAR: Follow hemodynamics. Vital signs per facility protocol GI & NUTRITION: Continue with nutritional support. Continue stool softeners and laxatives as needed. KIDNEYS & ELECTROLYTES: Strict monitoring of intake, output and overall fluid balance. Avoid nephrotoxic medications to the extent possible. Medications to be dosed according to renal function. Monitor electrolytes and replace as needed ENDOCRINE: Maintain blood glucose between 100-180 at all times. Hypoglycemia protocol in place INFECTIOUS DISEASE: Trend temperature, WBC and procalcitonin level Follow cultures, deescalate antibiotics as soon as possible. Panculture if new onset fever ONCOLOGY/HEMATOLOGY/COAGULATION: Monitor for s/s of bleeding Monitor hemoglobin, coagulation studies as needed SKIN: Pressure ulcer prevention per facility protocol Specialty mattress ORTHO/REHAB: Continue PT/OT Prophylaxis: Continue GI and DVT prophylaxis Code Status: Full Resuscitation Disposition: TBD Critical care time exceeds 44 minutes excluding procedural time because of the complexity patient's case involving a failing system. Discussed with my supervising physician ineffective plan to maximize patient's health. MARTHA WINKLER Apr 14, 2025 14:37
[2025-04-14] MEDS ORDERED: furoSEMIDE 40MG VIAL IV SCH (15:00)
--- NOTE | 2025-04-14 17:47 | NUR ---
Nutrition consult per poor appetite Reviewed labs, notes, and medications. Pt ex smoker, last admin 01/16/25, on HH, insulin, diuretics, elevated BUN 51, elevated Cr 1.4, BG 152(H) per chart review. 100%PO intake, wt via standing scale, last BM 04/12/25, moderate pitting, well nourished, no wounds noted per nursing. Fluid restriction per MD Recommendations -Provide HH+ 60 gm cho + glucerna QD w/ am tray -Monitor PO intake -Encourage PO intake as able -If poor PO intake continues consider appetite stimulant -Monitor BM -If no BM >3 days consider stool softener -Monitor electrolytes -Replenish electrolytes per protocol -Monitor wts -Reweigh as able -Order Vit D, vit b-12 labs to rule out deficiencies -Provide b-complex QD -Texture per STRATEGIC CLIENT EXECUTIVE recs -Recommend Pt to follow up with PCP -Monitor goals of care RD to follow + available for consult per protocol Addendum: 04/14/25 at [address] Amended: Links added.
--- NOTE | 2025-04-14 19:27 | NUR ---
TELEMETRY DISCONTINUED. SPOKE TO AZALEA JEFF. REGARDING PT REFUSING TELEMETRY. PA GAVE OKAY TO TO DC ORDER.
[2025-04-14] MEDS ORDERED: PoTASSium chl 10% ELIXIR 20MEQ 20 MEQ/15 ML UDCUP PO PRN (21:00)
[2025-04-14] MEDS ORDERED: PoTASSium chloRIDE 20MEQ/100ML 100 ML IV PRN (21:00)
[2025-04-14] MEDS: furoSEMIDE 40MG VIAL IV SCH (21:34)
[2025-04-14] MEDS: PoTASSium chloRIDE 20MEQ ER 20 MEQ ERTAB PO PRN (21:35)
[2025-04-15] VITALS (10 sets, daily range): BP systolic 101–119; BP diastolic 57–70; PULSE 67–88; RESP 17–21; TEMP 97.8–98.2; O2SAT 95–98
[2025-04-15 06:43] LABS: CREATININE 1.3 mg/dL (0.5-1.3); HEMATOCRIT 40.3 % (42-54); MEAN CORPUSCULAR HGB CONC 32.3 g/dL (32.0-36.0); MEAN CORPUSCULAR VOLUME 86.7 fL (79-99); POTASSIUM 3.7 mmol/L (3.5-5.1); RED BLOOD CELL COUNT(AUTO) 4.65 MIL/uL (4.50-6.20); RED CELL DISTRIBUTION WIDTH 18.5 % (11.0-15.5); WHITE BLOOD COUNT (AUTO) 4.3 K/uL (4.8-10.8)
[2025-04-15] MEDS ORDERED: TORS20TA4 PO (09:07)
[2025-04-15] MEDS ORDERED: SACU1TAB7 PO (09:11)
[2025-04-15] MEDS ORDERED: SPIR25TA6 PO (09:12)
[2025-04-15] MEDS ORDERED: FLUT1BLS15 IH (09:13)
[2025-04-15] MEDS ORDERED: FURO80TA3 PO (09:14)
--- NOTE | 2025-04-15 09:45 | PN ---
[facility] PROGRESS NOTE Date Patient Seen: Apr 15, 2025 Time of Visit: 09:45 Supervising Physician: Dr. Héctor Nelson Primary Care Physician: Dr. No Outpatient Specialists: Dr. 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 DuoNebs scheduled q.6 hours Daily weight Diet heart healthy, low-sodium Limit fluid 1.5 L daily DVT prophylaxis managed with SCDs Aspiration precautions, keep head of the bed greater than 35 Patient to be out of bed for all meals Incentive spirometer at bedside patient to use 6/10 an hour when not asleep A.m. labs has been ordered for tomorrow: CBC CMP BNP magnesium level, and hepatic panel INTERVAL HISTORY: Patient evaluated sitting in his chair at bedside with the sister present. Patient's BNP has increased today currently a 4170. He continues on Lasix 40 mg q.8 hours, and we will increase the patient's spironolactone to 25 mg b.i.d.. Patient overall states that he feels well, denies any shortness of breath, and h e remains on room air at this time. Patient advised that we would like to keep him another day to observe his diuresis, patient. REVIEW OF SYSTEMS: 12 point ROS reviewed with patient. Pertinent positives mentioned above. Otherwise negative. PHYSICAL EXAM: GENERAL: alert, alert, awake oriented x 3 HEENT: EOMI, Sclera non icteric, moist mucosa NECK: Supple, no JVD, trachea midline LUNGS: Coarse lung sounds to left lung callahan HEART: Regular rate and rhythm. Normal S1 and S2, without murmurs ABD: Abdomen soft, nontender. Bowel sounds present EXT: No clubbing cyanosis 3+ bilateral pitting edema NEURO: Alert and oriented to person, follows commands Vital Signs (last 8hr) Date Time Temp Pulse Resp B/P (MAP) Pulse Ox O2 Delivery O2 Flow Rate FiO2 04/15/25 08:00 98.1 67 18 107/69 95 Room Air 04/15/25 07:15 80 18 N/A Room Air 21 04/15/25 03:05 97.9 68 21 102/57 97 Room Air LABS: Hematology Labs: Test 04/15/25 06:14 04/14/25 10:55 Range/Units White Blood Count 4.3 #L 4.8-10.8 K/uL Red Blood Count 4.65 4.50-6.20 MIL/uL Hemoglobin 13.0 L 14.0-18.0 g/dL Hematocrit 40.3 L 42-54 % Mean Corpuscular Volume 86.7 79-99 fL Mean Corpuscular Hemoglobin 28.0 27.0-33.0 pg Mean Corpuscular Hemoglobin Concent 32.3 32.0-36.0 g/dL Red Cell Distribution Width 18.5 H 11.0-15.5 % Platelet Count 195 130-400 K/uL Mean Platelet Volume 11.1 H 7.5-10.5 fL Nucleated Red Blood Cells 0.0 0.0-0.19 % Immature Granulocyte % (Auto) 0.2 0-1 % Neutrophils (%) (Auto) 64.6 40.0-77.0 % Lymphocytes (%) (Auto) 25.7 21.0-51.0 % Monocytes (%) (Auto) 7.3 3.0-13.0 % Eosinophils (%) (Auto) 1.4 0.0-8.0 % Basophils (%) (Auto) 0.8 0.0-5.0 % Neutrophils # (Auto) 3.8 1.8-7.7 K/uL Lymphocytes # (Auto) 1.5 1.0-4.8 K/uL Monocytes # (Auto) 0.4 0.1-1.0 K/uL Eosinophils # (Auto) 0.08 0.00-0.70 K/uL Basophils # (Auto) 0.05 0.00-0.20 K/uL Absolute Immature Granulocyte (auto 0.01 0-1 K/uL Chemistry Labs: Test 04/15/25 06:14 04/15/25 05:46 04/14/25 10:55 Range/Units Sodium Level 140 136-145 mmol/L Potassium Level 3.7 3.5-5.1 mmol/L Chloride Level 105 101-111 mmol/L Carbon Dioxide Level 25 21-32 mmol/L Blood Urea Nitrogen 46 H 7-18 mg/dL Creatinine 1.3 0.5-1.3 mg/dL Glomerular Filtration Rate Calc 55 >90 mL/min Random Glucose 117 H 70-105 mg/dL Total Calcium 9.2 8.5-10.1 mg/dL B-Type Natriuretic Peptide 4170 H 0-100 pg/mL Whole Blood Glucose 127 H 70-110 MG/DL Magnesium Level 2.10 1.80-2.40 mg/dL Total Bilirubin 1.7 H 0.2-1.0 mg/dL Direct Bilirubin 0.9 H 0.0-0.3 mg/dL Aspartate Amino Transf (AST/SGOT) 21 10-37 U/L Alanine Aminotransferase (ALT/SGPT) 20 12-78 U/L Alkaline Phosphatase 91 50-136 U/L Total Protein 8.2 6.0-8.3 g/dL Albumin 4.0 3.5-5.0 g/dL DIAGNOSTICS / RADIOLOGY RESULTS: [ ] PLAN: Continue with telemetry monitoring Lasix 40 mg IV push b.i.d. DuoNebs scheduled q.6 hours Daily weight Diet heart healthy, low-sodium Limit fluid 1.5 L daily DVT prophylaxis managed with SCDs Aspiration precautions, keep head of the bed greater than 35 Patient to be out of bed for all meals Incentive spirometer at bedside patient to use 6/10 an hour when not asleep A.m. labs has been ordered for tomorrow: CBC CMP BNP magnesium level, and hepatic panel NEURO: Minimize central acting medications as possible. Maintain fall precautions, adequate lighting during the day PULMONARY: Supplemental 02 as needed. Maintain aspiration precautions at all times CARDIOVASCULAR: Follow hemodynamics. Vital signs per facility protocol GI & NUTRITION: Continue with nutritional support. Continue stool softeners and laxatives as needed. KIDNEYS & ELECTROLYTES: Strict monitoring of intake, output and overall fluid balance. Avoid nephrotoxic medications to the extent possible. Medications to be dosed according to renal function. Monitor electrolytes and replace as needed ENDOCRINE: Maintain blood glucose between 100-180 at all times. Hypoglycemia protocol in place INFECTIOUS DISEASE: Trend temperature, WBC and procalcitonin level Follow cultures, deescalate antibiotics as soon as possible. Panculture if new onset fever ONCOLOGY/HEMATOLOGY/COAGULATION: Monitor for s/s of bleeding Monitor hemoglobin, coagulation studies as needed SKIN: Pressure ulcer prevention per facility protocol Specialty mattress ORTHO/REHAB: Continue PT/OT Prophylaxis: Continue GI and DVT prophylaxis Code Status: Full Resuscitation Disposition: TBD Critical care time exceeds 44 minutes excluding procedural time because of the complexity patient's case involving a failing system. Discussed with my supervising physician ineffective plan to maximize patient's health. MARTHA WINKLER Apr 15, 2025 09:45
--- NOTE | 2025-04-15 11:04 | NUR ---
MARTHA TRISTAN AT BEDSIDE. EXPLAINED TO PT OF INCREASING BNP LEVEL. NO FURTHER ORDERS AT THIS TIME.
[2025-04-15] MEDS ORDERED: TORSEMIDE 20 MG TAB PO SCH (21:00)
[2025-04-15] MEDS: furoSEMIDE 80 MG TABLET PO SCH (21:27)
[2025-04-16] VITALS: BP 98/63; PULSE 73; RESP 20; TEMP 97.9
[2025-04-16 04:00] VITALS: BP 95/62; PULSE 92; RESP 20; TEMP 97.5
[2025-04-16 06:41] LABS: HEMATOCRIT 38.9 % (42-54); MEAN CORPUSCULAR HGB CONC 32.6 g/dL (32.0-36.0); MEAN CORPUSCULAR VOLUME 85.9 fL (79-99); RED BLOOD CELL COUNT(AUTO) 4.53 MIL/uL (4.50-6.20); RED CELL DISTRIBUTION WIDTH 18.6 % (11.0-15.5); WHITE BLOOD COUNT (AUTO) 5.1 K/uL (4.8-10.8)
[2025-04-16 06:57] LABS: CREATININE 1.4 mg/dL (0.5-1.3)
--- NOTE | 2025-04-16 07:08 | NUR ---
ALDACTONE INFORMED AZALEA THOMAS OF 2 ALDACTONE SCHEDULED AT 0900 25 MG BID AND 25 DAILY. PT TAKES 25 MG DAILY AT HOME. MARTHA STATED TO CONTINUE WITH WHAT HE TAKES AT HOME. 25MG BID NOT GIVEN.
[2025-04-16 07:10] VITALS: PULSE 92; RESP 18; O2SAT 92
[2025-04-16 08:00] VITALS: BP 116/65; PULSE 86; RESP 19; TEMP 97.7
[2025-04-16] MEDS: SPIRONOLACTONE 25 MG TAB PO SCH ×2 (09:00→09:48)
[2025-04-16] MEDS: (Fluticasone/Umeclidin/Vilanter (Trelegy Ellipta 200-62.5- IH SCH (09:00)
[2025-04-16] MEDS ORDERED: LoSARTan 25 MG TABLET PO SCH (09:00)
[2025-04-16 09:48] VITALS: O2SAT 100
[2025-04-16] MEDS: metOPROLol sucCINATE 50 MG TAB.SR.24H PO SCH (09:48)
[2025-04-16] MEDS: SACUBITRIL/VALSARTAN 1 EACH TABLET PO SCH (09:48)
[2025-04-16] MEDS: PIOGLITAZONE 30MG TAB PO SCH (09:48)
[2025-04-16] MEDS: tamSULOsin HCL 0.4 MG CAP.ER.24H PO SCH (09:48)
--- NOTE | 2025-04-16 10:01 | PN ---
[facility] PROGRESS NOTE Date Patient Seen: Apr 16, 2025 Time of Visit: 10:00 Supervising Physician: [ ] Supervising Physician: Dr. Héctor Nelson Primary Care Physician: Dr. No Outpatient Specialists: Dr. 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 DuoNebs scheduled q.6 hours Daily weight Diet heart healthy, low-sodium Limit fluid 1.5 L daily DVT prophylaxis managed with SCDs Aspiration precautions, keep head of the bed greater than 35 Patient to be out of bed for all meals Incentive spirometer at bedside patient to use 6/10 an hour when not asleep A.m. labs has been ordered for tomorrow: CBC CMP BNP magnesium level, and hepatic panel INTERVAL HISTORY: Patient evaluated sitting in his chair at bedside with the sister present. Patient's BNP has increased today currently a 4170. He continues on Lasix 40 mg q.8 hours, and we will increase the patient's spironolactone to 25 mg b.i.d.. Patient overall states that he feels well, denies any shortness of breath, and he remains on room air at this time. Patient advised that we would like to keep him another day to observe his diuresis, patient. REVIEW OF SYSTEMS: 12 point ROS reviewed with patient. Pertinent positives mentioned above. Otherwise negative. PHYSICAL EXAM: GENERAL: alert, alert, awake oriented x 3 HEENT: EOMI, Sclera non icteric, moist mucosa NECK: Supple, no JVD, trachea midline LUNGS: Coarse lung sounds to left lung callahan HEART: Regular rate and rhythm. Normal S1 and S2, without murmurs ABD: Abdomen soft, nontender. Bowel sounds present EXT: No clubbing cyanosis 3+ bilateral pitting edema NEURO: Alert and oriented to person, follows commands Vital Signs (last 8hr) Date Time Temp Pulse Resp B/P (MAP) Pulse Ox O2 Delivery O2 Flow Rate FiO2 04/16/25 08:00 97.7 86 19 116/65 94 Room Air 04/16/25 07:10 92 18 N/A Room Air 21 6/19/25 04:00 97.5 92 20 95/62 100 LABS: Hematology Labs: Test 04/16/25 06:30 04/14/25 10:55 Range/Units White Blood Count 5.1 4.8-10.8 K/uL Red Blood Count 4.53 4.50-6.20 MIL/uL Hemoglobin 12.7 L 14.0-18.0 g/dL Hematocrit 38.9 L 42-54 % Mean Corpuscular Volume 85.9 79-99 fL Mean Corpuscular Hemoglobin 28.0 27.0-33.0 pg Mean Corpuscular Hemoglobin Concent 32.6 32.0-36.0 g/dL Red Cell Distribution Width 18.6 H 11.0-15.5 % Platelet Count 183 130-400 K/uL Mean Platelet Volume 10.9 H 7.5-10.5 fL Nucleated Red Blood Cells 0.0 0.0-0.19 % Immature Granulocyte % (Auto) 0.2 0-1 % Neutrophils (%) (Auto) 64.6 40.0-77.0 % Lymphocytes (%) (Auto) 25.7 21.0-51.0 % Monocytes (%) (Auto) 7.3 3.0-13.0 % Eosinophils (%) (Auto) 1.4 0.0-8.0 % Basophils (%) (Auto) 0.8 0.0-5.0 % Neutrophils # (Auto) 3.8 1.8-7.7 K/uL Lymphocytes # (Auto) 1.5 1.0-4.8 K/uL Monocytes # (Auto) 0.4 0.1-1.0 K/uL Eosinophils # (Auto) 0.08 0.00-0.70 K/uL Basophils # (Auto) 0.05 0.00-0.20 K/uL Absolute Immature Granulocyte (auto 0.01 0-1 K/uL Chemistry Labs: Test 04/16/25 06:30 04/16/25 05:20 04/14/25 10:55 Range/Units Sodium Level 143 136-145 mmol/L Potassium Level 4.0 3.5-5.1 mmol/L Chloride Level 104 101-111 mmol/L Carbon Dioxide Level 24 21-32 mmol/L Blood Urea Nitrogen 41 H 7-18 mg/dL Creatinine 1.4 H 0.5-1.3 mg/dL Glomerular Filtration Rate Calc 50 >90 mL/min Random Glucose 118 H 70-105 mg/dL Total Calcium 9.0 8.5-10.1 mg/dL B-Type Natriuretic Peptide 3680 H 0-100 pg/mL Whole Blood Glucose 117 H 70-110 MG/DL Magnesium Level 2.10 1.80-2.40 mg/dL Total Bilirubin 1.7 H 0.2-1.0 mg/dL Direct Bilirubin 0.9 H 0.0-0.3 mg/dL Aspartate Amino Transf (AST/SGOT) 21 10-37 U/L Alanine Aminotransferase (ALT/SGPT) 20 12-78 U/L Alkaline Phosphatase 91 50-136 U/L Total Protein 8.2 6.0-8.3 g/dL Albumin 4.0 3.5-5.0 g/dL DIAGNOSTICS / RADIOLOGY RESULTS: [ ] PLAN: Continue with telemetry monitoring Lasix 40 mg IV push b.i.d. DuoNebs scheduled q.6 hours Daily weight Diet heart healthy, low-sodium Limit fluid 1.5 L daily DVT prophylaxis managed with SCDs Aspiration precautions, keep head of the bed greater than 35 Patient to be out of bed for all meals Incentive spirometer at bedside patient to use 6/10 an hour when not asleep A.m. labs has been ordered for tomorrow: CBC CMP BNP magnesium level, and hepatic panel NEURO: Minimize central acting medications as possible. Maintain fall precautions, adequate lighting during the day PULMONARY: Supplemental 02 as needed. Maintain aspiration precautions at all times CARDIOVASCULAR: Follow hemodynamics. Vital signs per facility protocol GI & NUTRITION: Continue with nutritional support. Continue stool softeners and laxatives as needed. KIDNEYS & ELECTROLYTES: Strict monitoring of intake, output and overall fluid balance. Avoid nephrotoxic medications to the extent possible. Medications to be dosed according to renal function. Monitor electrolytes and replace as needed ENDOCRINE: Maintain blood glucose between 100-180 at all times. Hypoglycemia protocol in place INFECTIOUS DISEASE: Trend temperature, WBC and procalcitonin level Follow cultures, deescalate antibiotics as soon as possible. Panculture if new onset fever ONCOLOGY/HEMATOLOGY/COAGULATION: Monitor for s/s of bleeding Monitor hemoglobin, coagulation studies as needed SKIN: Pressure ulcer prevention per facility protocol Specialty mattress ORTHO/REHAB: Continue PT/OT Prophylaxis: Continue GI and DVT prophylaxis Code Status: Full Resuscitation Disposition: TBD Critical care time exceeds 44 minutes excluding procedural time because of the complexity patient's case involving a failing system. Discussed with my supervising physician ineffective plan to maximize patient's health. MARTHA WINKLER Apr 16, 2025 10:01
[2025-04-16] MEDS ORDERED: SPIR25TA6 PO (11:37)
--- NOTE | 2025-04-16 11:37 | DS ---
[facility] DISCHARGE SUMMARY Date Patient Seen: Apr 16, 2025 Time of Visit: 11:37 Supervising Physician: Dr. Héctor Nelson Primary Care Physician: Dr. No Outpatient Specialists: Dr. Khanna Inpatient Consults: [ ] HOSPITAL COURSE: HPI (per admitting provider) 84-year-old male with past medical history of hypertension, DM type 2, CAD as s/p stent placement, pacemaker/AICD, hyperlipidemia, congestive heart failure, who presented to ED via private vehicle with complaint of worsening shortness of breath, with associated bilateral lower extremity swelling and found to have acute kidney injury, and CHF in acute exacerbation. Patient was seen and examined in ED with no relatives present at bedside. According to him he has been noticing increased in swelling of his lower extremities, also he gained couple of lb with a past weeks. Apparently patient was seen by his manager customer a week ago with no changes on his current medications, he is taking Lasix daily. There is no associated productive cough, fever, back pain, or confusion. In ED stat chest x-ray was done and showed bilateral congestion with superimposed pneumonitis, CBC is unrevealing for any acute infection or anemia, his chemistry is significant for creatinine level of 1.5 consistent with acute kidney injury. In ED patient was initiated on IV Lasix and neb treatment. At present patient is currently hemodynamically stable, on room air with appropriate oxygen saturation, denies any headache, chest pain, shortness of breath, fever, flu-like symptoms, abdominal pain, or difficulty urinating. On examination there is coarse lung sounds on left lung callahan, abdomen is soft with bowel sounds all throughout, there is 3+ pitting edema on bilateral lower extremity, some calf tenderness bilaterally. Patient is an ex-smoker, denies any alcohol intake, or illicit drug use. Patient was previously vaccinated with COVID, and does not take flu shot. The patient was treated for the following problems: Patient was admitted and evaluated for acute on chronic combined heart failure exacerbation, patient's BNP increased up to 4000 on this admission and he was started on Lasix 40 mg t.i.d. as well as spironolactone 25 mg b.i.d.. Upon discharge patient's BNP is down trending, swelling in the lower extremities has improved, he is being discharged today to returned to his home dose of Lasix as well as with seven days of an extra dose of spironolactone every day, patient educated on taking this extra dose of high time as he takes his current spironolactone 25 mg in the morning. 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 PCP notified of patients admission, hospital course and discharge. PHYSICAL EXAM: GENERAL: alert, alert, awake oriented x 3 HEENT: EOMI, Sclera non icteric, moist mucosa NECK: Supple, no JVD, trachea midline LUNGS: Coarse lung sounds to left lung callahan HEART: Regular rate and rhythm. Normal S1 and S2, without murmurs ABD: Abdomen soft, nontender. Bowel sounds present EXT: No clubbing cyanosis 3+ bilateral pitting edema NEURO: Alert and oriented to person, follows commands FOLLOW-UP: Follow-up with PCP in 2-3 days RECOMMENDATIONS: See Discharge Instructions This case was seen and discussed with my supervising physician. More than 30 minutes spent on discharge process, including evaluation of the patient, discussion with nursing staff, medication reconciliation and follow-up appointments MARTHA WINKLER Apr 16, 2025 11:37
--- NOTE | 2025-04-16 12:18 | NUR ---
DISCHARGE DC'D IV. NO COMPLICATIONS. PT AWARE TO FOLLOW UP WITH PCP IN 1 WEEK. AWARE OF PRESCRIPTIONS SENT TO PHARMACY BY AZALEA THOMAS. ANSWERED ALL QUESTIONS.
== END 2025-04-16 12:34 | disposition home or self-care (01) | DRG 291 ==
LOC: EDH 15:29 → EDHIP 19:27 → 3DH 04-13 01:30
PROVIDERS: ADMIT Internal Medicine Critical Care Medicine; ATTEND Internal Medicine Critical Care Medicine
DX: I11.0 Hypertensive heart disease with heart failure (principal); I50.43 Acute on chronic combined systolic (congestive) and diastolic (congestive) heart failure; N17.9 Acute kidney failure, unspecified; J98.4 Other disorders of lung; E78.00 Pure hypercholesterolemia, unspecified; E11.65 Type 2 diabetes mellitus with hyperglycemia; I25.10 Atherosclerotic heart disease of native coronary artery without angina pectoris; Z95.810 Presence of automatic (implantable) cardiac defibrillator; Z95.5 Presence of coronary angioplasty implant and graft; Z95.1 Presence of aortocoronary bypass graft; Z87.891 Personal history of nicotine dependence
CPT/HCPCS: 36415; 71045; 80048; 80053; 80076; 81001; 82550; 82948; 83735; 83880; 84100; 84484; 85025; 85027; 93005; 94664; 99291; G0378; J1644; J1815; J1938